=== PATIENT | male | born 1960 | race Caucasian/White ===

== ENCOUNTER 2017-02-23 21:46 | Emergency (ER) | payer OTHER ==
[~2017-02-23] VITALS: Wt 88.0 kg
[~2017-02-23 21:46] MED LIST: ASPI81TA3 PO; LOSA50TA2 PO; NIFE60TA60 PO
[2017-02-23] MEDS ORDERED: SOD CHLORIDE 0.9% 1,000 ML IV STA (23:37)
[2017-02-23] MEDS ORDERED: morphine 2 MG INJ IV STA (23:37)
[2017-02-23] MEDS ORDERED: ONDANSETRON 4 MG INJ IV STA (23:37)
[2017-02-24 00:03] LABS: ADD SCAN DIFF NO
[2017-02-24 00:06] LABS: BASOPHILS % 0.3 % (0.0-2.0); EOSINOPHILS # 0.2 10^3/ul (0.0-0.5); HEMATOCRIT 37.6 % (42.0-52.0); HEMOGLOBIN 12.6 g/dl (14.0-18.0); LYMPHOCYTES # 0.7 10^3/ul (0.8-2.9); MEAN CORPUSCULAR HEMOGLOBIN 30.7 pg (29.0-33.0); MEAN CORPUSCULAR HGB CONC 33.5 g/dl (32.0-37.0); MEAN CORPUSCULAR VOLUME 91.5 fl (82.0-101.0); MEAN PLATELET VOLUME 8.9 fl (7.4-10.4); MONOCYTE # 1.1 10^3/ul (0.3-0.9); MONOCYTES % 14.3 % (0.0-11.0); NEUTROPHIL # 5.6 10^3/ul (1.6-7.5); NEUTROPHILS % 73.1 % (39.0-77.0); PLATELET COUNT 202 10^3/UL (140-415); RED BLOOD COUNT 4.11 10^6/ul (4.70-6.10); RED CELL DISTRIBUTION WIDTH 12.9 % (11.5-14.5); WHITE BLOOD COUNT 7.7 10^3/ul (4.8-10.8)
[2017-02-24 00:42] LABS: ALBUMIN/GLOBULIN RATIO 1.42; BILIRUBIN,INDIRECT 0.3 mg/dl (0-1.1); BILIRUBIN,TOTAL 0.3 mg/dl (0.2-1.3); CALCIUM 9.4 mg/dl (8.4-10.2); CREATININE 1.86 mg/dl (0.61-1.24); POTASSIUM 3.9 mmol/L (3.5-5.1); TOTAL PROTEIN 6.8 g/dl (6.1-8.1)
[2017-02-24 00:53] LABS: TROPONIN-I 0.022 ng/ml (0.00-0.12)
--- NOTE | 2017-02-24 01:42 | RADRPT ---
PROCEDURE: Portable chest x-ray. CLINICAL INDICATION: Abdominal pain. TECHNIQUE: Portable AP view of the chest. COMPARISON: 04/21/2016. FINDINGS: No pulmonary edema or conolidation is identified. The cardiac silhouette is magnified. No pleural effusion is seen. There is no pneumothorax. There is no pneumoperitoneum. IMPRESSION: 1. No evidence of acute cardiopulmonary disease. 2. No pneumoperitoneum. RPTAT: HTAR .Cody Enriquez MD, MD Date Time Electronically viewed and signed by .Cody Enriquez MD, on 02/24/2017 01:42 .R/
[2017-02-24 04:13] VITALS: BP 120/75; PULSE 80; RESP 20; TEMP 98.2
[2017-02-24 04:25] LABS: ADD UMIC NO; URINE BILIRUBIN (Dip) NEGATIVE (NEGATIVE); URINE BLOOD (Dip) NEGATIVE (NEGATIVE); URINE COLOR LT. YELLOW (YELLOW); URINE GLUCOSE (Dip) NEGATIVE (NEGATIVE); URINE KETONES (Dip) NEGATIVE (NEGATIVE); URINE LEUKOCYTE ESTERASE (Dip) NEGATIVE (NEGATIVE); URINE NITRITE (Dip) NEGATIVE (NEGATIVE); URINE TOTAL PROTEIN (Dip) NEGATIVE (NEGATIVE); URINE UROBILINOGEN (Dip) 0.2 E.U./dL (0.1-1.0)
--- NOTE | 2017-02-24 04:50 | RADRPT ---
PROCEDURE: XR tibia / fibula. CLINICAL INDICATION: Trauma. TECHNIQUE: AP and lateral views of the left tibia/fibula were performed. COMPARISON: There are no similar studies submitted for comparison. FINDINGS: There is normal bone mineralization.There is no acute fracture or dislocation.No osseous lesion is i dentified. IMPRESSION: No acute fracture or subluxation. RPTAT: HIKT .Aurelio Patterson MD, MD Date Time Electronically viewed and signed by .Aurelio Patterson MD, on 02/24/2017 04:50 .T/
[2017-02-24] MEDS ORDERED: ACET-141 PO (06:24)
--- NOTE | 2017-02-24 06:29 | ERD ---
ER Documentation Chief Complaint Date/Time DATE: 02/24/17 TIME: 06:25 Chief Complaint AP, SOB and unable to urinate per verbatum. Hx of staph infection HPI This 56-year-old male supposedly complained of shortness of breath and abdominal pain in triage. States to me that he does not have any other symptoms currently but he had them earlier in the week. States that he just urinated before he came so might be some time before he can pee again. Also states that the main reason he is here is because of the leg pain that he has in his left melendrez. States that the doctor once told they had an infection in the bone in that melendrez. States that the pain is been going on and off for 2 weeks. Denies trauma to that area. ROS All systems reviewed and are negative except as per history of present illness. Medications Home Meds Active Scripts Acetaminophen* (Acetaminophen*) 500 MG Extra Strength Tablet, 500 MG PO Q6 Y for PAIN AND OR ELEVATED TEMP, #14 TAB Prov:NEYDA BARTLETT DO 02/24/17 Losartan Potassium* (Cozaar*) 50 Mg Tablet, 50 MG PO DAILY for 30 Days, TAB Prov:FARIDA ALBA [employer] 04/23/16 Nifedipine* (Procardia XL*) 60 Mg Tabsr, 60 MG PO BID for 30 Days, TAB Prov:FARIDA ALBA [employer] 01/15/16 Aspirin (Aspirin) 81 Mg Chew, 81 MG PO DAILY for 30 Days, TAB Prov:FARIDA ALBA [employer]ATOR 01/15/16 Allergies Allergies: Coded Allergies: No Known Allergy (Unverified , 01/12/16) PMhx/Soc History of Surgery: Yes Anesthesia Reaction: No Hx Neurological Disorder: No Hx Respiratory Disorders: No Hx Cardiac Disorders: Yes (HTN) Hx Psychiatric Problems: No Hx Miscellaneous Medical Probl: Yes (Carpal Tunnel) Hx Alcohol Use: Yes Hx Substance Use: No Hx Tobacco Use: Yes (1 ppd) Smoking Status: Current every day smoker Physical Exam Vitals Vital Signs Date Time Temp Pulse Resp B/P Pulse Ox O2 Delivery O2 Flow Rate FiO2 02/24/17 04:13 98.2 80 20 120/75 99 Room Air 02/23/17 22:30 98.2 97 20 121/70 98 Physical Exam Const: [] No distress, appears comfortable, eating during history taking Head: Atraumatic Eyes: Normal Conjunctiva ENT: Normal External Ears, Nose and Mouth. Neck: Full range of motion..~ No meningismus. Resp: Clear to auscultation bilaterally Cardio: Regular rate and rhythm, no murmurs Abd: Soft, non tender, non distended. Normal bowel sounds Skin: No petechiae or rashes Back: No midline or flank tenderness Ext: No cyanosis, or edema, distal pulses intact, states that he has pain along palpation along his melendrez but there is no deformity discoloration or abnormal appearance. Neur: Awake and alert and oriented 3, cranial nerves II through XII intact, no cerebellar deficits, normal gait Psych: Normal Mood and Affect Result Diagram: 02/23/17 2352 02/23/17 2352 Results 24 hrs Laboratory Tests Test 02/23/17 04:00 02/23/17 23:52 Urine Color LT. YELLOW Urine Clarity CLEAR Urine pH 6.0 Urine Specific [place] 1.020 Urine Ketones NEGATIVE Urine Nitrite NEGATIVE Urine Bilirubin NEGATIVE Urine Urobilinogen 0.2 E.U./dL Urine Leukocyte Esterase NEGATIVE Urine Hemoglobin NEGATIVE Urine Glucose NEGATIVE% Urine Total Protein NEGATIVE White Blood Count 7.710^3/ul Red Blood Count 4.1110^6/ul Hemoglobin 12.6g/dl Hematocrit 37.6% Mean Corpuscular Volume 91.5fl Mean Corpuscular Hemoglobin 30.7pg Mean Corpuscular Hemoglobin Concent 33.5g/dl Red Cell Distribution Width 12.9% Platelet Count 95363^3/UL Mean Platelet Volume 8.9fl Neutrophils % 73.1% Lymphocytes % 9.0% Monocytes % 14.3% Eosinophils % 3.0% Basophils % 0.3% Nucleated Red Blood Cells % 0.0/100WBC Neutrophils # 5.610^3/ul Lymphocytes # 0.710^3/ul Monocytes # 1.110^3/ul Eosinophils # 0.210^3/ul Basophils # 0.010^3/ul Nucleated Red Blood Cells # 0.010^3/ul Sodium Level 134mmol/L Potassium Level 3.9mmol/L Chloride Level 101mmol/L Carbon Dioxide Level 25mmol/L Anion Gap 12 Blood Urea Nitrogen 23mg/dl Creatinine 1.86mg/dl Glucose Level 167mg/dl Calcium Level 9.4mg/dl Total Bilirubin 0.3mg/dl Direct Bilirubin 0.00mg/dl Indirect Bilirubin 0.3mg/dl Aspartate Amino Transf (AST/SGOT) 19IU/L Alanine Aminotransferase (ALT/SGPT) 28IU/L Alkaline Phosphatase 57IU/L Troponin I 0.022ng/ml Total Protein 6.8g/dl Albumin 4.0g/dl Globulin 2.80g/dl Albumin/Globulin Ratio 1.42 Lipase 47U/L Current Medications Medications (Trade) Dose Ordered Sig/Sarah Route PRN Reason Start Time Stop Time Status Last Admin Dose Admin Sodium Chloride (NS) 1,000 ml @ 1,000 mls/hr Q1H STAT IV 02/23/17 23:37 02/24/17 00:36 DC 02/24/17 00:00 Morphine Sulfate (morphine) 2 mg ONCE STAT IV 02/23/17 23:37 02/23/17 23:38 DC 02/24/17 00:00 Ondansetron HCl (Zofran Inj) 4 mg ONCE STAT IV 02/23/17 23:37 02/23/17 23:38 DC 02/24/17 00:00 Procedures/MDM Patient with inconsistent stories of abdominal pain, shortness of breath and mostly leg pain. This patient stated he did have significant shortness of breath previously as well as abdominal pain went away but was very bad workup was performed which showed no acute pathology. The only thing found was renal insufficiency. Patient's creatinine had been high previously but not as high. He states that he is following up with his doctor has an appointment next week and knows that he has any problems. He was given a liter of normal saline hydration in the emergency room. Also eat multiple sandwiches at his request. This point I see no acute process. I doubt acute coronary syndrome as well as any emergent cause of abdominal pain or shortness of breath. Patient has no sign of osteomyelitis of his bone and no signs of infection in his skin. Discharging with primary care follow-up in the next 2-3 days . Chest x-ray interpretation: No acute process, no infiltrates, no pulmonary edema , no fractures, no pneumothorax Tibia-fibula x-ray interpretation: I see no bony abnormalities, no bone erosion , no fractures or dislocations. Departure Diagnosis: Primary Impression: Renal insufficiency Additional Impressions: Leg pain Hyponatremia Condition: Stable Patient Instructions: Renal Insufficiency Additional Instructions: Call your primary care doctor TOMORROW for an appointment during the next 2-3 days.See the doctor sooner or return here if your condition worsens before your appointment time. NEYDA BARTLETT DO February 24, 2017 06:29
== END 2017-02-24 06:54 | disposition home or self-care (01) ==
LOC: E/R 21:46
DX: N28.9 Disorder of kidney and ureter, unspecified (principal); M79.662 Pain in left lower leg; F17.210 Nicotine dependence, cigarettes, uncomplicated; I10 Essential (primary) hypertension; Z79.82 Long term (current) use of aspirin
CPT/HCPCS: 36415; 71010; 73590; 80053; 83690; 84484; 85025; 93005; 96374; 96375; J2270; J2405; J7030; Z7502; 81003

== ENCOUNTER 2017-06-22 22:21 | Inpatient (IN) | payer OTHER ==
[~2017-06-22] VITALS: Ht 182.9 cm; Wt 86.0 kg
[~2017-06-22 22:21] MED LIST changes: +ACET-141 PO
[2017-06-23] VITALS (11 sets, daily range): BP systolic 139–184; BP diastolic 83–105; PULSE 60–65; RESP 17–20; TEMP 98.7; Ht 182.9 cm; Wt 86.0 kg
--- NOTE | 2017-06-23 00:22 | ERA ---
ER Documentation Chief Complaint Date/Time DATE: 06/23/17 TIME: 00:21 Chief Complaint c/o coughing up blood x 1 day. (+) SB with excertion. (+) smoke. HPI The patient is a 57-year-old male, presenting with acute hemoptysis, persistent cough, with shortness of breath. He denies similar symptoms previously. He is homeless, denies weight loss, night sweats. He denies abdominal pain, vomiting , dysuria, diarrhea. He smokes half a pack a day, history of illicit drug Past medical history: Hypertension, CAD, dyslipidemia, history of CHF, chronic kidney disease Past surgical history bilateral carpal tunnel syndrome ROS All systems reviewed and are negative except as per history of present illness. Medications Home Meds Active Scripts Aspirin (Aspirin) 81 Mg Chew, 81 MG PO DAILY for 30 Days, TAB Prov:FARIDA ALBA BOOKY 01/15/16 Reported Medications Losartan Potassium* (Losartan Potassium*) 100 Mg Tablet, 100 MG PO DAILY, TAB 06/23/17 Amlodipine Besylate* (Amlodipine Besylate*) 10 Mg Tablet, 10 MG PO DAILY, #30 TAB 06/23/17 Hydrochlorothiazide* (Hydrochlorothiazide*) 25 Mg Tab, 25 MG PO DAILY, #30 TAB 06/23/17 Discontinued Scripts Acetaminophen* (Acetaminophen*) 500 MG Extra Strength Tablet, 500 MG PO Q6 Y for PAIN AND OR ELEVATED TEMP, #14 TAB Prov:NEYDA BARTLETT DO 02/24/17 Losartan Potassium* (Cozaar*) 50 Mg Tablet, 50 MG PO DAILY for 30 Days, TAB Prov:FARIDA ALBA NP 04/23/16 Nifedipine* (Procardia XL*) 60 Mg Tabsr, 60 MG PO BID for 30 Days, TAB Prov:FARIDA ALBA BOOKY 01/15/16 Allergies Allergies: Coded Allergies: No Known Allergy (Unverified , 06/23/17) PMhx/Soc History of Surgery: Yes Anesthesia Reaction: No Hx Neurological Disorder: No Hx Respiratory Disorders: No Hx Cardiac Disorders: Yes (HTN) Hx Psychiatric Problems: No Hx Miscellaneous Medical Probl: Yes (Carpal Tunnel) Hx Alcohol Use: Yes Hx Substance Use: No Hx Tobacco Use: Yes (1 ppd) Physical Exam Vitals Vital Signs Date Time Temp Pulse Resp B/P Pulse Ox O2 Delivery O2 Flow Rate FiO2 06/23/17 05:41 58 18 160/99 98 06/23/17 04:13 98.7 66 18 168/98 98 06/23/17 02:51 75 18 205/120 98 06/23/17 02:20 75 18 209/128 98 06/22/17 22:46 99.1 85 18 223/134 98 Physical Exam Const: No acute distress. Head: Atraumatic. Eyes: Normal Conjunctiva. ENT: Normal External Ears, Nose and Mouth. Neck: Full range of motion. No meningismus. Resp: Clear to auscultation bilaterally. Cardio: Regular rate and rhythm. Abd: Soft, non distended, normal bowel sounds, non tender. Skin: No petechiae or rashes. Back: No midline or flank tenderness. Ext: No cyanosis, or edema. Neur: Awake and alert. No focal deficit Psych: Normal Mood and Affect. Result Diagram: 06/23/17 0035 06/23/17 0035 Results 24 hrs Laboratory Tests Test 06/23/17 00:35 White Blood Count 7.710^3/ul Red Blood Count 3.9210^6/ul Hemoglobin 11.9g/dl Hematocrit 35.7% Mean Corpuscular Volume 91.1fl Mean Corpuscular Hemoglobin 30.4pg Mean Corpuscular Hemoglobin Concent 33.3g/dl Red Cell Distribution Width 12.8% Platelet Count 70365^3/UL Mean Platelet Volume 9.5fl Neutrophils % 67.0% Lymphocytes % 19.7% Monocytes % 10.5% Eosinophils % 2.1% Basophils % 0.4% Nucleated Red Blood Cells % 0.0/100WBC Neutrophils # 5.210^3/ul Lymphocytes # 1.510^3/ul Monocytes # 0.810^3/ul Eosinophils # 0.210^3/ul Basophils # 0.010^3/ul Nucleated Red Blood Cells # 0.010^3/ul Prothrombin Time 13.9Sec Prothrombin Time Ratio 1.1 INR International Normalized Ratio 1.07 Activated Partial Thromboplast Time 35.9Sec Sodium Level 141mmol/L Potassium Level 3.0mmol/L Chloride Level 107mmol/L Carbon Dioxide Level 27mmol/L Anion Gap 10 Blood Urea Nitrogen 21mg/dl Creatinine 1.45mg/dl Glucose Level 166mg/dl Lactic Acid Level 1.4mmol/L Calcium Level 9.1mg/dl Total Bilirubin 0.2mg/dl Direct Bilirubin 0.00mg/dl Indirect Bilirubin 0.2mg/dl Aspartate Amino Transf (AST/SGOT) 24IU/L Alanine Aminotransferase (ALT/SGPT) 23IU/L Alkaline Phosphatase 66IU/L Troponin I 0.046ng/ml Total Protein 6.3g/dl Albumin 3.6g/dl Globulin 2.70g/dl Albumin/Globulin Ratio 1.33 Ethyl Alcohol Level < 10.0mg/dl Current Medications Medications (Trade) Dose Ordered Sig/Sarah Route PRN Reason Start Time Stop Time Status Last Admin Dose Admin Potassium Chloride 250 ml @ 62.5 mls/hr ONCE ONCE IVPB 06/23/17 02:30 06/23/17 06:29 06/23/17 02:51 Levofloxacin/ Dextrose (Levaquin 750 Mg/ D5W 150 ml (Pmx)) 150 ml @ 100 mls/hr ONCE ONCE IVPB 06/23/17 03:30 06/23/17 04:59 DC 06/23/17 04:12 Labetalol HCl 20 mg 20 mg ONCE ONCE IV 06/23/17 03:30 06/23/17 03:31 DC 06/23/17 04:12 Vancomycin HCl 250 ml @ 125 mls/hr ONCE IVPB 06/23/17 05:00 06/23/17 06:59 Ceftriaxone Sodium (Rocephin) 50 ml @ 100 mls/hr ONCE ONCE IVPB 06/23/17 05:00 06/23/17 05:29 DC Procedures/[place] [id number] Radiology Main Line: [phone] DIAGNOSTIC IMAGING REPORT Patient: SAGRARIO ELAINE : 1960 Age: 57 Sex: M MR #: [id number] DOS: 06/23/17 0029 Ordering MD: BRENNA CRUZ MD Location: E/R Room/Bed: PROCEDURE: XR Chest. CLINICAL INDICATION: Possible sepsis. TECHNIQUE: 2 frontal views of the chest. COMPARISON: Chest dated 04/21/2016. FINDINGS: Heart size is at upper limits of normal. The lungs are clear. No signs of pleural fluid or pneumothorax are seen. The osseous structures and soft tissues are unremarkable. IMPRESSION: No evidence for active cardiopulmonary disease. RPTAT: UU Physician Karla Date Time Electronically viewed and signed by Arthur sEcobar Physician on 06/23/2017 01:29 RS/ CC: BRENNA CRUZ MD [place] [id number] Radiology Main Line: [phone] DIAGNOSTIC IMAGING REPORT Patient: SAGRARIO ELAINE : 1960 Age: 57 Sex: M MR #: [id number] DOS: 06/23/17 0031 Ordering MD: BRENNA CRUZ MD Location: E/R Room/Bed: PROCEDURE: CT Chest without contrast. CLINICAL INDICATION: Hemoptysis TECHNIQUE: CT scan of the chest without contrast was performed on a multidetector high-resolution CT scanner. Coronal and sagittal reformatted images were obtained from the axial source images. The total exam CTDI equals 12.6 mGy and the total exam DLP equals 516.05 mGy-cm. One or more the following dose reduction techniques were utilized: Automated exposure control, adjustment of the mA and / or kV according to patient's size, or use of iterative reconstruction technique. COMPARISON: Chest x-ray of 06/23/2017 FINDINGS: No enlarged mediastinal lymph nodes or pleural effusion is seen. Coronary artery calcification. No adrenal mass is seen. The most inferior aspect of the left adrenal is not included in the imaging volume. Calcification in splenic artery. Mild dependent atelectasis in posterior lungs. Mild right apical lung fibrotic changes. Likely small calcified granuloma at the right lung apex. Scattered linear atelectasis/fibrosis is seen in the lungs. There is appearance of patchy partial atelectasis/infiltrate at the base of the right lower lung lobe posteriorly and inferiorly. Mild degenerative changes in thoracic spine. IMPRESSION: Patchy partial atelectasis/infiltrate at base of right lower lung lobe. Coronary artery calcification. Please see above. RPTAT: HJES .Andrew Atwood MD, MD Date Time Electronically viewed and signed by .Andrew Atwood MD, MD on 06/23/2017 04:51 .S/ CC: BRENNA CRUZ MD EKG: Read by emergency physician Rate/Rhythm: Normal Sinus Rhythm 75 beats/min QRS, ST, T-waves: No ST elevation, no T inversion. LVH, prolong QT Impression: Abnormal EKG MEDICAL MAKING DECISION: The patient is a 57-year-old male, presenting with acute hemoptysis, acute pneumonia, acute hypokalemia, acute accelerated hypertension. He is significant wrist was treated with Levaquin IV, Rocephin IV , vancomycin IV for acute pneumonia also suspected with hemoptysis, potassium chloride 40 mEq IV for acute hypokalemia, acute labetalol 20 mg IV and hydralazine 10 mg IV for acute excellent hypertension with good response. The differential diagnoses considered include but are not limited to TB, malignancy, asthma, COPD, pneumonia, pulmonary embolus, pleural effusion, congestive heart failure. Critical Care: Time: 35 minutes excluding all billable procedures. Treatments/Evaluations: Close monitoring and treatment of unstable vital signs, cardiorespiratory, and neurologic status, while maintaining tight balance of fluid, respiratory, and cardiac interventions. Departure Diagnosis: Primary Impression: Hemoptysis Additional Impressions: Pneumonia Accelerated hypertension Hypokalemia Anemia Condition: Stable Comments I discussed the findings with the patient. I discussed the patient with the on- call hospitalist Dr. Davies who was made aware of the lab, the treatment, the patient condition. The patient is admitted to telemetry Urinalysis and urine drug screen are pending BRENNA CRUZ MD Jun 23, 2017 00:22
[2017-06-23 01:17] LABS: BASOPHILS % 0.4 % (0.0-2.0); EOSINOPHILS # 0.2 10^3/ul (0.0-0.5); EOSINOPHILS % 2.1 % (0.0-7.0); HEMATOCRIT 35.7 % (42.0-52.0); HEMOGLOBIN 11.9 g/dl (14.0-18.0); LYMPHOCYTES # 1.5 10^3/ul (0.8-2.9); LYMPHOCYTES % 19.7 % (15.0-51.0); MEAN CORPUSCULAR HEMOGLOBIN 30.4 pg (29.0-33.0); MEAN CORPUSCULAR HGB CONC 33.3 g/dl (32.0-37.0); MEAN CORPUSCULAR VOLUME 91.1 fl (82.0-101.0); MEAN PLATELET VOLUME 9.5 fl (7.4-10.4); MONOCYTE # 0.8 10^3/ul (0.3-0.9); MONOCYTES % 10.5 % (0.0-11.0); NEUTROPHIL # 5.2 10^3/ul (1.6-7.5); PLATELET COUNT 169 10^3/UL (140-415); RED BLOOD COUNT 3.92 10^6/ul (4.70-6.10); RED CELL DISTRIBUTION WIDTH 12.8 % (11.5-14.5); WHITE BLOOD COUNT 7.7 10^3/ul (4.8-10.8)
--- NOTE | 2017-06-23 01:30 | RADRPT ---
PROCEDURE: XR Chest. CLINICAL INDICATION: Possible sepsis. TECHNIQUE: 2 frontal views of the chest. COMPARISON: Chest dated 04/21/2016. FINDINGS: Heart size is at upper limits of normal. The lungs are clear. No signs of pleural fluid or pneumotho rax are seen. The osseous structures and soft tissues are unremarkable. IMPRESSION: No evidence for active cardiopulmonary disease. RPTAT: UU Physician Karla Date Time Electronically viewed and signed by Arthur Escobar Physician on 06/23/2017 01:29 RS/
[2017-06-23 01:32] LABS: INR 1.07; PROTIME 13.9 Sec (12.2-14.2); PT RATIO 1.1
[2017-06-23 01:33] LABS: PARTIAL THROMBOPLASTIN TIME 35.9 Sec (25.0-35.0)
[2017-06-23 02:01] LABS: ALANINE AMINOTRANSFERASE 23 IU/L (13-69); ALBUMIN 3.6 g/dl (3.3-4.9); ALBUMIN/GLOBULIN RATIO 1.33; ALKALINE PHOSPHATASE 66 IU/L (42-121); ANION GAP 10 (8-16); ASPARTATE AMINO TRANSFERASE 24 IU/L (15-46); BILIRUBIN,INDIRECT 0.2 mg/dl (0-1.1); BILIRUBIN,TOTAL 0.2 mg/dl (0.2-1.3); BLOOD UREA NITROGEN 21 mg/dl (7-20); CALCIUM 9.1 mg/dl (8.4-10.2); CARBON DIOXIDE 27 mmol/L (21-31); CHLORIDE 107 mmol/L (97-110); CREATININE 1.45 mg/dl (0.61-1.24); GLUCOSE 166 mg/dl (70-220); SODIUM 141 mmol/L (135-144); TOTAL PROTEIN 6.3 g/dl (6.1-8.1)
[2017-06-23] MEDS ORDERED: HYDR25TA6 PO (02:12)
[2017-06-23 02:13] LABS: TROPONIN-I 0.046 ng/ml (0.00-0.12)
[2017-06-23] MEDS ORDERED: AMLO-147 PO (02:13)
[2017-06-23] MEDS ORDERED: LOSA100T7 PO (02:16)
[2017-06-23] MEDS ORDERED: POTASSIUM CHLORIDE 250 ML IVPB ONE (02:30)
[2017-06-23 02:34] LABS: ETHANOL < 10.0 mg/dl
[2017-06-23] MEDS ORDERED: LABETALOL HCL 20MG INJ IV ONE (03:30)
[2017-06-23] MEDS ORDERED: LEVOFLOXACIN 750MG/D5W (PMX) 150 ML IVPB ONE (03:30)
--- NOTE | 2017-06-23 04:52 | RADRPT ---
PROCEDURE: CT Chest without contrast. CLINICAL INDICATION: Hemoptysis TECHNIQUE: CT scan of the chest without contrast was performed on a multidetector high-resolution CT scanner. Coronal and sagittal reformatted images were obtained from the axial source images. The total exam CTDI equals 12.6 mGy and the total exam DLP equals 516.05 mGy-cm. One or more the following dose reduction techniques were utilized: Automated exposure control, adjus tment of the mA and / or kV according to patient's size, or use of iterative reconstruction techniqu e. COMPARISON: Chest x-ray of 06/23/2017 FINDINGS: No enlarged mediastinal lymph nodes or pleural effusion is seen. Coronary artery calcification. No a drenal mass is seen. The most inferior aspect of the left adrenal is not included in the imaging vol ume. Calcification in splenic artery. Mild dependent atelectasis in posterior lungs. Mild right apic al lung fibrotic changes. Likely small calcified granuloma at the right lung apex. Scattered linear atelectasis/fibrosis is seen in the lungs. There is appearance of patchy partial atelectasis/infiltr ate at the base of the right lower lung lobe posteriorly and inferiorly. Mild degenerative changes i n thoracic spine. IMPRESSION: Patchy partial atelectasis/infiltrate at base of right lower lung lobe. Coronary artery calcificatio n. Please see above. RPTAT: HJES .Andrew Atwood MD, MD Date Time Electronically viewed and signed by .Andrew Atwood MD, on 06/23/2017 04:51 .S/
[2017-06-23] MEDS ORDERED: VANCOMYCIN 1 GM (PMX) 250 ML IVPB SCH (05:00)
[2017-06-23] MEDS ORDERED: CEFTRIAXONE 1 GM/50 ML (PMX) 50 ML IVPB ONE (05:00)
[2017-06-23] MEDS ORDERED: ONDANSETRON 4 MG INJ IV PRN (07:30)
[2017-06-23] MEDS ORDERED: morphine 2 MG INJ IV PRN (07:30)
[2017-06-23] MEDS ORDERED: LORAZEPAM 0.5 MG TAB PO PRN (07:30)
[2017-06-23] MEDS ORDERED: NACL 0.9% 3 ML SYG IV SCH (07:30)
[2017-06-23] MEDS ORDERED: ALBUTEROL/IPRATROPIUM (NEB) 3 ML AMP HHN PRN (07:30)
[2017-06-23] MEDS ORDERED: ACETAMINOPHEN 325 MG TAB PO PRN (07:30)
[2017-06-23 08:08] LABS: BASOPHILS % 0.4 % (0.0-2.0); EOSINOPHILS # 0.2 10^3/ul (0.0-0.5); EOSINOPHILS % 2.5 % (0.0-7.0); HEMATOCRIT 34.7 % (42.0-52.0); HEMOGLOBIN 11.1 g/dl (14.0-18.0); LYMPHOCYTES # 1.5 10^3/ul (0.8-2.9); LYMPHOCYTES % 22.3 % (15.0-51.0); MEAN CORPUSCULAR HEMOGLOBIN 29.4 pg (29.0-33.0); MEAN CORPUSCULAR VOLUME 91.8 fl (82.0-101.0); MEAN PLATELET VOLUME 9.6 fl (7.4-10.4); MONOCYTE # 0.7 10^3/ul (0.3-0.9); NEUTROPHIL # 4.3 10^3/ul (1.6-7.5); NEUTROPHILS % 63.7 % (39.0-77.0); PLATELET COUNT 159 10^3/UL (140-415); RED BLOOD COUNT 3.78 10^6/ul (4.70-6.10); WHITE BLOOD COUNT 6.7 10^3/ul (4.8-10.8)
[2017-06-23 08:33] LABS: ALBUMIN 3.4 g/dl (3.3-4.9); ALBUMIN/GLOBULIN RATIO 1.36; BILIRUBIN,INDIRECT 0.1 mg/dl (0-1.1); BILIRUBIN,TOTAL 0.1 mg/dl (0.2-1.3); CALCIUM 8.9 mg/dl (8.4-10.2); CREATININE 1.34 mg/dl (0.61-1.24); POTASSIUM 3.7 mmol/L (3.5-5.1); TOTAL PROTEIN 5.9 g/dl (6.1-8.1)
[2017-06-23] MEDS ORDERED: HEPARIN 5,000 UNIT/0.5 ML VIAL SC SCH (09:00)
[2017-06-23] MEDS ORDERED: LOSARTAN 50 MG TAB PO SCH (09:00)
[2017-06-23] MEDS ORDERED: AMLODIPINE 10 MG TAB PO SCH (09:00)
[2017-06-23] MEDS: ASPIRIN 81 MG TAB PO SCH (09:04)
[2017-06-23] MEDS: SOD CHLORIDE 0.9% 1,000 ML IV SCH ×2 (09:04→10:53)
--- NOTE | 2017-06-23 10:43 | HP ---
Date/Time of Note Date/Time of Note DATE: 06/23/17 TIME: 10:32 Assessment/Plan VTE Prophylaxis VTE Prophylaxis Intervention: heparin Lines/Catheters IV Catheter Type (from [facility]): Peripheral IV Assessment/Plan Assessment/Plan 57-year-old male who came to the emergency room for evaluation of progressive malaise, night sweats now with new onset of coughing up blood. 1.Hemoptysis-Bronchitis? Rule out other pulmonary etiologies. HH stable -Obtain sputum culture, AFB smear and culture. -Obtain D-dimer and VQ scan to rule out PE. Patient is not a candidate for contrast study secondary to renal function. -If pulmonary sources are ruled out, will consider GI- Patient doesn't have any N/V or abdominal discomfort. 2. Possible community-acquired Pneumonia -Patient will be started on Levaquin. Follow-up cultures. 3. Hypertension, accelerated. Now stable. -Continue home antihypertensives. 4. Hypokalemia. Status post repletion. -We will monitor level. Monitor mag level. 5. Acute kidney injury on chronic kidney disease. Baseline creatinine unknown. -Obtain nephrology consult. Monitor renal function closely and nephrotoxins as much as possible. 6. Anemia, likely anemia of chronic kidney disease. H&H stable. Will monitor. 7. Right hand carpal tunnel syndrome. Pain control as needed. 8. Current nicotine abuse. Cessation advised 9. Possible homelessness. -draw off worker evaluation. 10. Noncompliance. -Patient was counseled. Plan: Patient will be monitored in the telemetry. Patient will have ID and pulmonary evaluation as his presenting complaints are concerning and needs tuberculosis rule out. He will be treated empirically for pneumonia. Electrolyte levels will be monitored closely and replete as needed. We will also consult patient on compliance and will have social work specialist evaluation. Will also obtain a.m. labs including fasting lipid panel, A1c and TSH level. Plan of care updated with patient and in agreement with the current plan. Approximately 60 minutes was spent on this history and physical. Patient was seen in collaboration with . HPI/AKHIL Admit Date/Time Admit Date/Time Jun 23, 2017 at 04:59 Hx of Present Illness This is a 57-year-old male with a past medical history of noncompliance, hypertension, chronic kidney disease, diastolic heart failure, right hand carpal tunnel syndrome, nicotine abuse, former meth abuse, who presented to the emergency room with complaints of coughing up blood that started yesterday. Apparently, he was having progressive nocturnal dyspnea, malaise and night sweats. Patient denied chest pain, palpitation, loss of consciousness, dizziness, nausea, vomiting, abdominal pain, fever or chills. He denied any recent travel or sick contacts. Initial blood pressure 223/134, temperature 99.1. CBC with hemoglobin 11.9, hematocrit 35.7. BMP with potassium 3.0, blood sugar 166, BUN [address] creatinine [address]. A [address] chest without contrast revealed patchy partial atelectasis versus infiltrate at base of right lower lung lob. Twelve-lead EKG without any ST or T-wave changes. Patient was given Levaquin, labetalol, vancomycin and potassium chloride in the emergency room. Patient was admitted for further evaluation. ROS A 12 point review of system was assessed and is negative other than what is mentioned in HPI. PMH/Family/Social Past Medical History See HPI Past Surgical History History of surgery for carpal tunnel syndrome. Past Surgical Hx: other Social History Current every day smoker. Former meth abuse. Occasional/social alcohol use. Smoking Status: Current every day smoker Exam/Review of Systems Vital Signs Vitals Vital Signs Date Time Temp Pulse Resp B/P Pulse Ox O2 Delivery O2 Flow Rate FiO2 06/23/17 08:00 65 06/23/17 07:39 97.8 18 174/91 98 06/23/17 07:38 Room Air Exam Exam General: Well developed,adequately built, not in any acute distress . HEENT: Normocephalic, Atraumatic, No laceration or hematoma; Eyes: PEERL, Conjunctiva clear, Anicteric sclera Neck: Supple without any lymphadenopathy, nontender, no JVD, no carotid bruits, trachea midline, no thyromegaly Cardiac: S1, S2 auscultated, regular rhythm and rate, no mumurs or gallop Pulmonary: Diminished breath sound bibasilar. Normal respiratory effort. Chest clear to auscultation bilaterally, no adventitious breath sounds GI: Abdomen normal to inspection. Soft, non tender, non- distended, no masses, no rebound tenderness or guarding. Bowel sounds active on all four quadrants Genitourinary: Deferred Extremities: Pain with movement on right arm secondary to carpal tunnel. No cyanosis, clubbing, or edema. Pulses [2+] bilaterally. Full ROM on all four extremities. No focal weakness appreciated. Neurologic: Alert to person, place, time, and situation. Affect appropriate, intact sensation. Skin: Slightly diaphoretic. Clean,dry, and intact. No ecchymosis, no rashes, or lesions Labs Result Diagram: 06/23/1737 06/23/17736 Medications Medications Current Medications Sodium Chloride (NS) 1,000 ml @ 100 mls/hr Q10H IV Last administered on 09:04; Admin Dose 100 MLS/HR; Start 06/23/17 at 07:03; Stop 06/23/17 at 23: 00 Lorazepam (Ativan) 0.5 mg Q8H PRN PO ANXIETY; Start 06/23/17 at 07:30 Ondansetron HCl (Zofran Inj) 4 mg Q6H PRN IV NAUSEA AND/OR VOMITING; Start at 07:30 Acetaminophen (Tylenol Tab) 650 mg Q6H PRN PO PAIN LEVEL 1-3 OR FEVER; Start at 07:30 Morphine Sulfate (morphine) 2 mg Q4H PRN IV PAIN LEVEL 7-10; Start 06/23/17 at 07:30 Heparin Sodium (Porcine) (Heparin (5000 Units/0.5 ml)) 5,000 unit Q12 SC ; Start 06/23/17 at 09:00 Amlodipine Besylate (Norvasc) 10 mg DAILY PO Last administered on 06/23/17 09: 04; Admin Dose 10 MG; Start 06/23/17 at 09:00 Aspirin (Aspirin) 81 mg DAILY PO Last administered on 06/23/17 09:04; Admin Dose 81 MG; Start 06/23/17 at 09:00 Losartan Potassium (Cozaar) 100 mg DAILY PO Last administered on 06/23/17 09: 04; Admin Dose 100 MG; Start 06/23/17 at 09:00 Hydralazine HCl 10 mg 10 mg Q4H PRN IV SBP > 160; Start 06/23/17 at 07:30 Levofloxacin/ Dextrose (Levaquin 500mg/ D5W 100 ml (Pmx)) 100 ml @ 100 mls/hr Q24H IVPB ; Start 06/24/17 at 04:00 MARVIN BARAHONA NP Jun 23, 2017 10:43
--- NOTE | 2017-06-23 11:34 | CONS ---
Date/Time of Note Date/Time of Note DATE: 06/23/17 TIME: 11:29 Assessment/Plan Assessment/Plan Additional Assessment/Plan Chest x-ray was reviewed which is essentially unremarkable. Next CT scan chest without contrast is showing emphysematous changes with very scant right lower lobe infiltrate/atelectasis. Assessment and recommendations; 1. Patient admitted with hemoptysis etiology is unclear. CT chest is essentially unremarkable. 2. Epigastric discomfort. Possibly superimposed gastritis/peptic ulcer disease. Discontinue sub-cutaneous heparin. Patient is awaiting VQ scan of chest. Once the VQ scan is done we will review it and make further recommendations. Consultation Date/Type/Reason Admit Date/Time Jun 23, 2017 at 04:59 Date of Consultation: Jun 23, 2017 Type of Consultation: Pulmonary Reason for Consultation Emergent consultation requested for evaluation of hemoptysis. History of presenting any; patient is a 57-year-old white male who came into the emergency room yesterday with complaints of not feeling well. Patient also is having cough for the last few days with coughing up of blood-tinged sputum. Patient denies any shortness of breath, wheezing. Has lost little weight. Denies any fever chills. According to him he never had hemoptysis before. Complaint of upper abdominal discomfort. But denies any nausea vomiting. Past medical history; 1. Patient with history of chronic renal insufficiency. 2. Hypertension. 3. COPD. Patient; reviewed. Allergies; none. Social history; patient smokes about a pack a day. Family history; patient is single. Occupational history; patient is homeless. Review of systems; denies any headache, visual changes. Sinus symptoms. Chest pain. Shortness of breath at any wheezing. Complains of cough with coughing up of blood-tinged sputum. Complains of upper abdominal discomfort. But denies any nausea vomiting. Denies any melena or hematochezia. Denies any edema. And orthopnea. Any edema on exertion. Denies any skin changes. General exam; middle-aged male, awake and alert. Currently no distress. Past Surgical History Past Surgical Hx: other Social History Smoking Status: Current every day smoker Exam/Review of Systems Vital Signs Vitals Vital Signs Date Time Temp Pulse Resp B/P Pulse Ox O2 Delivery O2 Flow Rate FiO2 06/23/17 08:00 65 06/23/17 07:39 97.8 18 174/91 98 06/23/17 07:38 Room Air Exam HEENT exam; supple neck, no JVD. No lymphadenopathy. Midline trachea. No thyromegaly. Pupils are midsize and reactive to light. Patient has fair dentition. Chest exam; clear to auscultation. S1-S2 audible, no murmurs. Regular rhythm. Abdomen exam; soft, there is epigastric tenderness. Bowel sounds audible. No organomegaly. Abdomen is nondistended. Extremity exam; no peripheral edema. No clubbing , pulses 1+ bilaterally. TELEVISION ANALYZER exam; no focal motor deficit. Results Result Diagram: 06/23/17 0737 06/23/17 0737 Results 24 hrs Laboratory Tests Test 06/23/17 00:35 06/23/17 05:29 06/23/17 07:37 White Blood Count 7.7 6.7 Red Blood Count 3.92 L 3.78 L Hemoglobin 11.9 L 11.1 L Hematocrit 35.7 L 34.7 L Mean Corpuscular Volume 91.1 91.8 Mean Corpuscular Hemoglobin 30.4 29.4 Mean Corpuscular Hemoglobin Concent 33.3 32.0 Red Cell Distribution Width 12.8 13.0 Platelet Count 169 159 Mean Platelet Volume 9.5 9.6 Neutrophils % 67.0 63.7 Lymphocytes % 19.7 22.3 Monocytes % 10.5 11.0 Eosinophils % 2.1 2.5 Basophils % 0.4 0.4 Nucleated Red Blood Cells % 0.0 0.0 Neutrophils # 5.2 4.3 Lymphocytes # 1.5 1.5 Monocytes # 0.8 0.7 Eosinophils # 0.2 0.2 Basophils # 0.0 0.0 Nucleated Red Blood Cells # 0.0 0.0 Prothrombin Time 13.9 Prothrombin Time Ratio 1.1 INR International Normalized Ratio 1.07 Activated Partial Thromboplast Time 35.9 H Sodium Level 141 142 Potassium Level 3.0 L 3.7 Chloride Level 107 109 Carbon Dioxide Level 27 25 Anion Gap 10 12 Blood Urea Nitrogen 21 H 19 Creatinine 1.45 H 1.34 H Glucose Level 166 81 # Lactic Acid Level 1.4 1.0 1.0 Calcium Level 9.1 8.9 Total Bilirubin 0.2 0.1 L Direct Bilirubin 0.00 0.00 Indirect Bilirubin 0.2 0.1 Aspartate Amino Transf (AST/SGOT) 24 18 Alanine Aminotransferase (ALT/SGPT) 23 27 Alkaline Phosphatase 66 58 Troponin I 0.046 Total Protein 6.3 5.9 L Albumin 3.6 3.4 Globulin 2.70 2.50 Albumin/Globulin Ratio 1.33 1.36 Ethyl Alcohol Level < 10.0 Medications Medications Current Medications Sodium Chloride (NS) 1,000 ml @ 100 mls/hr Q10H IV Last administered on 09:04; Admin Dose 100 MLS/HR; Start 06/23/17 at 07:03; Stop 06/23/17 at 23: 00 Lorazepam (Ativan) 0.5 mg Q8H PRN PO ANXIETY; Start 06/23/17 at 07:30 Ondansetron HCl (Zofran Inj) 4 mg Q6H PRN IV NAUSEA AND/OR VOMITING; Start at 07:30 Acetaminophen (Tylenol Tab) 650 mg Q6H PRN PO PAIN LEVEL 1-3 OR FEVER; Start at 07:30 Morphine Sulfate (morphine) 2 mg Q4H PRN IV PAIN LEVEL 7-10; Start 06/23/17 at 07:30 Heparin Sodium (Porcine) (Heparin (5000 Units/0.5 ml)) 5,000 unit Q12 SC ; Start 06/23/17 at 09:00 Amlodipine Besylate (Norvasc) 10 mg DAILY PO Last administered on 06/23/17 09: 04; Admin Dose 10 MG; Start 06/23/17 at 09:00 Aspirin (Aspirin) 81 mg DAILY PO Last administered on 06/23/17 09:04; Admin Dose 81 MG; Start 06/23/17 at 09:00 Losartan Potassium (Cozaar) 100 mg DAILY PO Last administered on 06/23/17 09: 04; Admin Dose 100 MG; Start 06/23/17 at 09:00 Hydralazine HCl 10 mg 10 mg Q4H PRN IV SBP > 160; Start 06/23/17 at 07:30 Levofloxacin/ Dextrose (Levaquin 500mg/ D5W 100 ml (Pmx)) 100 ml @ 100 mls/hr Q24H IVPB ; Start 06/24/17 at 04:00 CALDERON ORDAZ Jun 23, 2017 11:34
[2017-06-23] MEDS: NIFEdipine (XL) 30 MG TAB PO SCH ×2 (14:15→20:14)
[2017-06-23 16:19] LABS: ADD UMIC NO; UR ASCORBIC ACID NEGATIVE (NEGATIVE); UR BILIRUBIN (Dip) NEGATIVE (NEGATIVE); UR BLOOD (Dip) NEGATIVE (NEGATIVE); UR CLARITY CLEAR (CLEAR); UR COLOR STRAW (YELLOW); UR GLUCOSE (Dip) 1+ mg/dL (NEGATIVE); UR KETONES (Dip) NEGATIVE (NEGATIVE); UR LEUKOCYTE ESTERASE (Dip) NEGATIVE Leu/ul (NEGATIVE); UR NITRITE (Dip) NEGATIVE (NEGATIVE); UR SPECIFIC GRAVITY (Dip) 1.013 (1.003-1.030); UR TOTAL PROTEIN (Dip) NEGATIVE (NEGATIVE); UR UROBILINOGEN (Dip) NEGATIVE (NEGATIVE)
[2017-06-23 16:32] LABS: OPIATES Negative (NEGATIVE)
[2017-06-23 16:43] LABS: BARBITURATES Negative (NEGATIVE); BENZODIAZEPINES Negative (NEGATIVE); CANNABINOIDS Negative (NEGATIVE); COCAINE Negative (NEGATIVE)
--- NOTE | 2017-06-23 16:49 | RADRPT ---
PROCEDURE: Ventilation-perfusion lung scan CLINICAL INDICATION: 57 -year-old patient with shortness of breath, hemoptysis. TECHNIQUE: Following the inhalation of approximately 1.0 mCi of Tc-99m stannous DTPA aerosol, vent ilation images were obtained. The patient was then given an intravenous injection of approximately 4.0 mCi of Tc-99m MAA, and perfusion images were obtained. Of specific node, the patient was unable to perform anterior and posterior perfusion images. COMPARISON: No prior VQ scans. Correlation was made with chest x-ray dated June 23, 2017. FINDINGS: Ventilation images demonstrate nonhomogeneous distribution of activity in the lungs bilaterally. Perfusion images reveal matched nonhomogeneous distribution of activity in both lungs. The findings represent low probability for pulmonary embolus. IMPRESSION: Low probability for pulmonary embolus. RPTAT: HH .Shala Anderson MD, Date Time Electronically viewed and signed by .Shala Anderson MD, on 06/23/2017 16:48 .L/
[2017-06-23] MEDS: PANTOPRAZOLE (EC) 40 MG TAB PO SCH (17:09)
--- NOTE | 2017-06-23 18:37 | RADRPT ---
PROCEDURE: Renal US. CLINICAL INDICATION: Renal dysfunction. TECHNIQUE: Multiple sonographic images of the kidneys and urinary bladder were obtained. The imag es were reviewed on a PACS workstation. COMPARISON: No prior studies are available for comparison. FINDINGS: The right kidney measures 10.4 cm. The left kidney measures 10.9 cm. There is no renal mass. There is no hydronephrosis. There is no renal calculus. Renal parenchymal thickness is normal bilaterally. Both kidneys are hyperechoic consistent with medical renal disease. The perirenal regions are normal with no fluid collection or mass. The urinary bladder is unremarkable with no mass or calculus. Bladder volume is 178 ml and the patie nt was unable to void. IMPRESSION: 1. Bilateral hyperechoic kidneys consistent with medical renal disease. 2. No hydronephrosis. 3. The patient was unable to void. RPTAT: QQ .Robbie Montes MD, MD Date Time Electronically viewed and signed by .Robbie Montes MD, on 06/23/2017 18:36 .R/
--- NOTE | 2017-06-23 19:13 | CONS ---
DATE OF ADMISSION: 06/23/2017 DATE OF CONSULTATION: 06/23/2017 The patient was admitted at the request of Dr. Davies. Thank you very much for allowing me to evaluate this 57-year-old male, admitted with hemoptysis and renal insufficiency. HISTORICAL EVENTS: As you well know, it has been approximately 1 week ago he noted the onset of a cough and the latter has been associated with night sweats and, for the last several days, notable blood each time he would cough. He has had weight loss of approximately 20 pounds. He denied vomiting, nausea. Appetite has been reduced. He has had a several-month history of difficulty initiating his urinary stream. No hematuria, flank pain, or history of urinary tract infection or stones. PAST MEDICAL HISTORY: 1. Includes renal insufficiency. Events surrounding this are unclear. 2. History of hypertension. 3. History of right carpal tunnel syndrome having had surgery for the same. MEDICATION: Prior to admission included: 1. Hydrochlorothiazide 25 mg per day. 2. Amlodipine 10 mg per day. 3. Aspirin 81 mg per day. 4. Losartan 100 mg per day. SOCIAL HISTORY: He does smoke. PHYSICAL EXAMINATION: VITAL SIGNS: Blood pressure 176/105. Respirations were 18. He was afebrile. HEENT: Eyes: Extraocular muscles were full. NECK: Revealed jugular venous distention. LUNGS: Reduced breath sounds bilaterally, a few rhonchi in the left base. HEART: Rhythm regular. No 3rd sound. ABDOMEN: Nontender. Some distention involving the lower abdomen. Percussion note was slightly dull over the bladder. EXTREMITIES: No edema. Calves nontender. Pulses reduced in the lower extremities. NEUROLOGIC: No lateralizing motor weakness. AVAILABLE LABORATORY STUDIES: Creatinine was 1.45 on 06/23/2017 at 0035 hours. At 0737 hours, it was 1.34. Hypokalemia was corrected, and lytes were normal this morning at 0700. Albumin was 3.4, hematocrit 34.7. White count was normal. Platelet count unrevealing. Coagulation studies were normal. IMAGING STUDIES: Include CT of the chest that revealed patchy partial atelectasis versus infiltrate at the right lower lung with chest x-ray revealing no abnormalities. IMPRESSION: Importantly, the patient's baseline renal function was well-preserved in April 2016 when his creatinine was 1.18. His present level of creatinine, that is improved since admission, I think reflects volume contraction in the setting of being on an ANNAMARIE inhibitor. At this point, need to exclude any obstructive component, given his pathologic lower urinary tract symptoms. PLAN: At this time is to obtain a urinalysis, random urine for sodium, protein/creatinine ratio to exclude any significant proteinuria, renal ultrasound, and postvoid bladder ultrasound. Losartan was discontinued and Catapres ordered for control of his blood pressure. We will follow with you. Thanks so much. Dictated By: Tirso Tavera MD /mattie/sylvain /Document#: [id number]
[2017-06-23 19:57] LABS: PROTEIN/CREAT RATIO 0.4 RATIO
[2017-06-24] VITALS (11 sets, daily range): BP systolic 132–160; BP diastolic 77–89; PULSE 62–81; RESP 19–20
[2017-06-24] MEDS: LEVOFLOXACIN 500MG/D5W (PMX) 100 ML IVPB SCH (05:22)
[2017-06-24] MEDS: PANTOPRAZOLE (EC) 40 MG TAB PO SCH ×2 (05:22→17:34)
[2017-06-24 07:16] LABS: BASOPHILS % 0.3 % (0.0-2.0); EOSINOPHILS # 0.2 10^3/ul (0.0-0.5); EOSINOPHILS % 2.1 % (0.0-7.0); HEMATOCRIT 36.8 % (42.0-52.0); HEMOGLOBIN 11.6 g/dl (14.0-18.0); LYMPHOCYTES # 1.7 10^3/ul (0.8-2.9); LYMPHOCYTES % 19.6 % (15.0-51.0); MEAN CORPUSCULAR HEMOGLOBIN 29.3 pg (29.0-33.0); MEAN CORPUSCULAR HGB CONC 31.5 g/dl (32.0-37.0); MEAN CORPUSCULAR VOLUME 92.9 fl (82.0-101.0); MEAN PLATELET VOLUME 9.7 fl (7.4-10.4); MONOCYTE # 0.8 10^3/ul (0.3-0.9); MONOCYTES % 8.7 % (0.0-11.0); NEUTROPHIL # 5.9 10^3/ul (1.6-7.5); NEUTROPHILS % 69.1 % (39.0-77.0); PLATELET COUNT 187 10^3/UL (140-415); RED BLOOD COUNT 3.96 10^6/ul (4.70-6.10); WHITE BLOOD COUNT 8.6 10^3/ul (4.8-10.8)
[2017-06-24 07:34] LABS: D-DIMER 320.75 ng/ml (<460)
[2017-06-24 08:08] LABS: CALCIUM 8.8 mg/dl (8.4-10.2); CREATININE 1.33 mg/dl (0.61-1.24); PHOSPHORUS 3.3 mg/dl (2.5-4.9); POTASSIUM 3.6 mmol/L (3.5-5.1)
[2017-06-24] MEDS: ASPIRIN 81 MG TAB PO SCH (08:46)
[2017-06-24] MEDS: NIFEdipine (XL) 30 MG TAB PO SCH ×2 (08:46→20:47)
--- NOTE | 2017-06-24 08:46 | CONS ---
Date/Time of Note Date/Time of Note DATE: 06/24/17 TIME: 08:42 Assessment/Plan Assessment/Plan Problems: (1) ARF (acute renal failure) Comment: Cr down to 1.33, and stable... renal GABRIELA (-) x evidence for some CKD... no hydro...UA unremarkable... no further w/u rec at this time... prob mild CKD due to HTN Nephrosclerosis (2) Hypertension Status: Acute Comment: controlled (3) Hemoptysis Status: Acute Comment: w/u in progress... asx now... nl O2 on RA... is afeb Consultation Date/Type/Reason Admit Date/Time Jun 23, 2017 at 04:59 Initial Consult Date 06/23/17 Type of Consultation: renal 24 HR Interval Summary Free Text/Dictation no complaints... eating breakfast on RA Exam/Review of Systems Vital Signs Vitals Vital Signs Date Time Temp Pulse Resp B/P Pulse Ox O2 Delivery O2 Flow Rate FiO2 06/24/17 08:30 98.1 65 20 132/89 95 06/23/17 14:30 21 06/23/17 07:38 Room Air Intake and Output 06/23/17 06/23/17 06/24/17 15:00 23:00 07:00 Intake Total 950 ml 1300 ml Output Total 300 ml Balance 950 ml 1000 ml Exam Constitutional: alert, oriented Psych: no complaints Head: normocephalic Neck: supple Respiratory: clear to auscultation Cardiovascular: regular rate and rhythm Gastrointestinal: soft Extremities: edema (none) Results Result Diagram: 06/24/17 0641 06/24/17 0641 Results 24 hrs Laboratory Tests Test 06/23/17 15:50 06/24/17 06:41 Urine Color STRAW Urine Clarity CLEAR Urine pH 7.0 Urine Specific [place] 1.013 Urine Ketones NEGATIVE Urine Nitrite NEGATIVE Urine Bilirubin NEGATIVE Urine Urobilinogen NEGATIVE Urine Leukocyte Esterase NEGATIVE Urine Hemoglobin NEGATIVE Urine Random Creatinine 69.10 Urine Random Sodium 114 H Urine Protein/Creatinine Ratio 0.40 Urine Glucose 1+ H Urine Total Protein 28.0 H Urine Opiates Screen Negative Urine Barbiturates Negative Urine Amphetamines Screen POSITIVE Urine Benzodiazepines Screen Negative Urine Cocaine Screen Negative Urine Cannabinoids Negative White Blood Count 8.6 # Red Blood Count 3.96 L Hemoglobin 11.6 L Hematocrit 36.8 L Mean Corpuscular Volume 92.9 Mean Corpuscular Hemoglobin 29.3 Mean Corpuscular Hemoglobin Concent 31.5 L Red Cell Distribution Width 13.0 Platelet Count 187 Mean Platelet Volume 9.7 Neutrophils % 69.1 Lymphocytes % 19.6 Monocytes % 8.7 Eosinophils % 2.1 Basophils % 0.3 Nucleated Red Blood Cells % 0.0 Neutrophils # 5.9 Lymphocytes # 1.7 Monocytes # 0.8 Eosinophils # 0.2 Basophils # 0.0 Nucleated Red Blood Cells # 0.0 D-Dimer 320.75 D-Dimer Comment Sodium Level 141 Potassium Level 3.6 Chloride Level 109 Carbon Dioxide Level 25 Anion Gap 11 Blood Urea Nitrogen 17 Creatinine 1.33 H Glucose Level 133 # Calcium Level 8.8 Phosphorus Level 3.3 Magnesium Level 2.0 Medications Medications Current Medications Lorazepam (Ativan) 0.5 mg Q8H PRN PO ANXIETY; Start 06/23/17 at 07:30 Ondansetron HCl (Zofran Inj) 4 mg Q6H PRN IV NAUSEA AND/OR VOMITING; Start at 07:30 Acetaminophen (Tylenol Tab) 650 mg Q6H PRN PO PAIN LEVEL 1-3 OR FEVER; Start at 07:30 Morphine Sulfate (morphine) 2 mg Q4H PRN IV PAIN LEVEL 7-10; Start 06/23/17 at 07:30 Aspirin (Aspirin) 81 mg DAILY PO Last administered on 06/23/17 09:04; Admin Dose 81 MG; Start 06/23/17 at 09:00 Hydralazine HCl 10 mg 10 mg Q4H PRN IV SBP > 160; Start 06/23/17 at 07:30 Levofloxacin/ Dextrose (Levaquin 500mg/ D5W 100 ml (Pmx)) 100 ml @ 100 mls/hr Q24H IVPB Last administered on 06/24/17 05:22; Admin Dose 100 MLS/HR; Start at 04:00 Pantoprazole (Protonix Tab) 40 mg BID@06,18 PO Last administered on 06/24/17 05:22; Admin Dose 40 MG; Start 06/23/17 at 18:00 Clonidine (Catapres) 0.1 mg Q6H PO Last administered on 06/23/17 18:25; Admin Dose 0.1 MG; Start 06/23/17 at 12:30 Nifedipine (Procardia Xl) 30 mg BID PO Last administered on 06/23/17t 20:14; Admin Dose 30 MG; Start 06/23/17 at 13:00 ASHLEY BLISS MD Jun 24, 2017 08:46
--- NOTE | 2017-06-24 09:24 | PN ---
Date/Time of Note Date/Time of Note DATE: 06/24/17 TIME: 09:21 Assessment/Plan VTE Prophylaxis VTE Prophylaxis Intervention: contraindicated Lines/Catheters IV Catheter Type (from [facility]): Peripheral IV Assessment/Plan Problems: (1) Hemoptysis Status: Acute Comment: Attempting to do the workup. Given that were having trouble with the nursing staff collecting the specimen I will go ahead and order a QuantiFERON gold (2) Pneumonia Status: Acute Comment: Patient with hemoptysis. Improving on antibiotic therapy. Likely not TB. Qualifiers: Pneumonia type: due to unspecified organism Laterality: right Lung location: lower lobe of lung Qualified Code: J18.1 - Pneumonia of right lower lobe due to infectious organism (3) Accelerated hypertension Status: Acute Comment: Blood pressure is adequately controlled. Please note that he is off of the ANNAMARIE inhibitor he is off of the diuretics he is on a dihydropyridine and actually relatively low dose. I will check a postvoid residual and if appropriate add an alpha blockade therapy (4) Kidney disease, chronic, stage II (GFR 60-89 ml/min) Status: Chronic Comment: Review of the information we have dating back over a year demonstrates that his serum creatinine had a low of 1.1 and actually averages where he is now. Medication adjustment as appropriate (5) Anemia Status: Acute Comment: Noted. Watch carefully Qualifiers: Anemia type: unspecified type Qualified Code: D64.9 - Anemia, unspecified type (6) Diastolic dysfunction Status: Chronic Comment: Noted. It was very mild on the echo one year ago. 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 Note sputum for AFB has not been collected Constitutional: no complaints (Eyes fevers chills or sweats) Respiratory: cough, sputum (Hemoptysis) Cardiovascular: no complaints Gastrointestinal: no complaints Genitourinary: no complaints Exam/Review of Systems Vital Signs Vitals Vital Signs Date Time Temp Pulse Resp B/P Pulse Ox O2 Delivery O2 Flow Rate FiO2 06/24/17 08:30 98.1 65 20 132/89 95 06/23/17 14:30 21 06/23/17 07:38 Room Air Intake and Output 06/23/17 06/23/17 06/24/17 15:00 23:00 07:00 Intake Total 950 ml 1300 ml Output Total 300 ml Balance 950 ml 1000 ml Exam Constitutional: alert, oriented Neck: non-tender, supple Respiratory: clear to auscultation, normal air movement Cardiovascular: nl pulses, regular rate and rhythm Results Result Diagram: 06/24/17 0641 06/24/17 0641 Results 24 hrs Laboratory Tests Test 06/23/17 15:50 06/24/17 06:41 Urine Color STRAW Urine Clarity CLEAR Urine pH 7.0 Urine Specific [place] 1.013 Urine Ketones NEGATIVE Urine Nitrite NEGATIVE Urine Bilirubin NEGATIVE Urine Urobilinogen NEGATIVE Urine Leukocyte Esterase NEGATIVE Urine Hemoglobin NEGATIVE Urine Random Creatinine 69.10 Urine Random Sodium 114 H Urine Protein/Creatinine Ratio 0.40 Urine Glucose 1+ H Urine Total Protein 28.0 H Urine Opiates Screen Negative Urine Barbiturates Negative Urine Amphetamines Screen POSITIVE Urine Benzodiazepines Screen Negative Urine Cocaine Screen Negative Urine Cannabinoids Negative White Blood Count 8.6 # Red Blood Count 3.96 L Hemoglobin 11.6 L Hematocrit 36.8 L Mean Corpuscular Volume 92.9 Mean Corpuscular Hemoglobin 29.3 Mean Corpuscular Hemoglobin Concent 31.5 L Red Cell Distribution Width 13.0 Platelet Count 187 Mean Platelet Volume 9.7 Neutrophils % 69.1 Lymphocytes % 19.6 Monocytes % 8.7 Eosinophils % 2.1 Basophils % 0.3 Nucleated Red Blood Cells % 0.0 Neutrophils # 5.9 Lymphocytes # 1.7 Monocytes # 0.8 Eosinophils # 0.2 Basophils # 0.0 Nucleated Red Blood Cells # 0.0 D-Dimer 320.75 D-Dimer Comment Sodium Level 141 Potassium Level 3.6 Chloride Level 109 Carbon Dioxide Level 25 Anion Gap 11 Blood Urea Nitrogen 17 Creatinine 1.33 H Glucose Level 133 # Calcium Level 8.8 Phosphorus Level 3.3 Magnesium Level 2.0 Medications Medications Current Medications Lorazepam (Ativan) 0.5 mg Q8H PRN PO ANXIETY; Start 06/23/17 at 07:30 Ondansetron HCl (Zofran Inj) 4 mg Q6H PRN IV NAUSEA AND/OR VOMITING; Start at 07:30 Acetaminophen (Tylenol Tab) 650 mg Q6H PRN PO PAIN LEVEL 1-3 OR FEVER; Start at 07:30 Morphine Sulfate (morphine) 2 mg Q4H PRN IV PAIN LEVEL 7-10; Start 06/23/17 at 07:30 Aspirin (Aspirin) 81 mg DAILY PO Last administered on 06/24/17 08:46; Admin Dose 81 MG; Start 06/23/17 at 09:00 Hydralazine HCl 10 mg 10 mg Q4H PRN IV SBP > 160; Start 06/23/17 at 07:30 Levofloxacin/ Dextrose (Levaquin 500mg/ D5W 100 ml (Pmx)) 100 ml @ 100 mls/hr Q24H IVPB Last administered on 06/24/17 05:22; Admin Dose 100 MLS/HR; Start at 04:00 Pantoprazole (Protonix Tab) 40 mg BID@06,18 PO Last administered on 06/24/17 05:22; Admin Dose 40 MG; Start 06/23/17 at 18:00 Clonidine (Catapres) 0.1 mg Q6H PO Last administered on 06/23/17 18:25; Admin Dose 0.1 MG; Start 06/23/17 at 12:30 Nifedipine (Procardia Xl) 30 mg BID PO Last administered on 06/24/17 08:46; Admin Dose 30 MG; Start 06/23/17 at 13:00 NEYDA REDD MD Jun 24, 2017 09:24
[2017-06-24] MEDS ORDERED: DOXAZOSIN 1 MG TAB PO ONE (09:30)
[2017-06-24 09:39] LABS: IRON 41 ug/dl (35-150)
[2017-06-24 09:49] LABS: TOTAL IRON BINDING CAPACITY 239 ug/dl (241-421)
[2017-06-24] MEDS: DOXAZOSIN 2 MG TAB PO SCH ×2 (10:37→23:35)
--- NOTE | 2017-06-24 15:41 | CONS ---
Date/Time of Note Date/Time of Note DATE: 06/24/17 TIME: 15:41 Assessment/Plan Assessment/Plan Chief Complaint/Hosp Course ID PROGRESS NOTE CURRENT ABX: Levaquin 24H INTERVAL SUMMARY * Resting comfortably * SCREENING TESTS NEGATIVE: (-)HIV/HBV/HCV * QTF Gold serology pending EXAM GEN: 57 yo M HEENT: Unremarkable NECK: supple CVS: RRR CHEST: Equal chest rise bilaterally, without dyspnea on observation ABD: Soft EXT: No c/c/e NEURO: Grossly intact, moves all extremities SKIN: No diaphoresis, no obvious rash ID ASSESSMENT 57 yo M tobacco smoker admit with: 1. Chronic cough w/hemoptysis, recurrent per notes, w/subjective fevers, night sweats * Patient on daily ASA for hx of CAD/NSTEMI in [place] 2016 * Possibly due to acute pulmonary infection + local cough trauma to bronchus vs alveolar beds 2. Possible CAP per CT: Patchy partial atelectasis/infiltrate at base of right lower lung lobe. 3. Epigastric pain 4. CAD per CT * s/p January 2016 NSTEMI and negative stress test. 5. HTN-> Accelerated on admission 6. Acute kidney injury on chronic kidney disease. Baseline creatinine unknown. 7. Anemia, likely anemia of chronic kidney disease. 8. Right hand carpal tunnel syndrome -> (+)Pain 9. Current tobaccoism 10. Cerebral microvascular disease per 2016 CT Brain: chronic small vessel ischemic changes, related to hypertension. Possible remote bleed. \CURRENT ABX: Levaquin ID RECOMMENDATIONS 1. Continue Levaquin 2. Wait for QTFG vs place PPD which will result 1st ? Problems: Consultation Date/Type/Reason Admit Date/Time Jun 23, 2017 at 04:59 Initial Consult Date 06/23/17 Type of Consultation: ID Exam/Review of Systems Vital Signs Vitals Vital Signs Date Time Temp Pulse Resp B/P Pulse Ox O2 Delivery O2 Flow Rate FiO2 06/24/17 15:25 98.2 69 20 139/82 97 06/23/17 14:30 21 06/23/17 07:38 Room Air Intake and Output 06/23/17 06/23/17 06/24/17 15:00 23:00 07:00 Intake Total 950 ml 1300 ml Output Total 300 ml Balance 950 ml 1000 ml Results Result Diagram: 06/24/17 0641 06/24/17 0641 Results 24 hrs Laboratory Tests Test 06/23/17 15:50 06/24/17 06:41 Urine Color STRAW Urine Clarity CLEAR Urine pH 7.0 Urine Specific [place] 1.013 Urine Ketones NEGATIVE Urine Nitrite NEGATIVE Urine Bilirubin NEGATIVE Urine Urobilinogen NEGATIVE Urine Leukocyte Esterase NEGATIVE Urine Hemoglobin NEGATIVE Urine Random Creatinine 69.10 Urine Random Sodium 114 H Urine Protein/Creatinine Ratio 0.40 Urine Glucose 1+ H Urine Total Protein 28.0 H Urine Opiates Screen Negative Urine Barbiturates Negative Urine Amphetamines Screen POSITIVE Urine Benzodiazepines Screen Negative Urine Cocaine Screen Negative Urine Cannabinoids Negative White Blood Count 8.6 # Red Blood Count 3.96 L Hemoglobin 11.6 L Hematocrit 36.8 L Mean Corpuscular Volume 92.9 Mean Corpuscular Hemoglobin 29.3 Mean Corpuscular Hemoglobin Concent 31.5 L Red Cell Distribution Width 13.0 Platelet Count 187 Mean Platelet Volume 9.7 Neutrophils % 69.1 Lymphocytes % 19.6 Monocytes % 8.7 Eosinophils % 2.1 Basophils % 0.3 Nucleated Red Blood Cells % 0.0 Neutrophils # 5.9 Lymphocytes # 1.7 Monocytes # 0.8 Eosinophils # 0.2 Basophils # 0.0 Nucleated Red Blood Cells # 0.0 D-Dimer 320.75 D-Dimer Comment Sodium Level 141 Potassium Level 3.6 Chloride Level 109 Carbon Dioxide Level 25 Anion Gap 11 Blood Urea Nitrogen 17 Creatinine 1.33 H Glucose Level 133 # Calcium Level 8.8 Phosphorus Level 3.3 Magnesium Level 2.0 Iron Level 41 Total Iron Binding Capacity 239 L Percent Iron Saturation 17 L Ferritin 65.9 Hepatitis B Surface Antigen NEGATIVE Hepatitis C Antibody NEGATIVE Medications Medications Current Medications Lorazepam (Ativan) 0.5 mg Q8H PRN PO ANXIETY; Start 06/23/17 at 07:30 Ondansetron HCl (Zofran Inj) 4 mg Q6H PRN IV NAUSEA AND/OR VOMITING; Start at 07:30 Acetaminophen (Tylenol Tab) 650 mg Q6H PRN PO PAIN LEVEL 1-3 OR FEVER; Start at 07:30 Morphine Sulfate (morphine) 2 mg Q4H PRN IV PAIN LEVEL 7-10; Start 06/23/17 at 07:30 Aspirin (Aspirin) 81 mg DAILY PO Last administered on 06/24/17t 08:46; Admin Dose 81 MG; Start 06/23/17 at 09:00 Hydralazine HCl 10 mg 10 mg Q4H PRN IV SBP > 160; Start 06/23/17 at 07:30 Levofloxacin/ Dextrose (Levaquin 500mg/ D5W 100 ml (Pmx)) 100 ml @ 100 mls/hr Q24H IVPB Last administered on 06/24/17 05:22; Admin Dose 100 MLS/HR; Start at 04:00 Pantoprazole (Protonix Tab) 40 mg BID@06,18 PO Last administered on 06/24/17 05:22; Admin Dose 40 MG; Start 06/23/17 at 18:00 Clonidine (Catapres) 0.1 mg Q6H PO Last administered on 06/23/17 18:25; Admin Dose 0.1 MG; Start 06/23/17 at 12:30 Nifedipine (Procardia Xl) 30 mg BID PO Last administered on 06/24/17 08:46; Admin Dose 30 MG; Start 06/23/17 at 13:00 Doxazosin Mesylate (Cardura) 2 mg HS PO Last administered on 06/24/17 10:37; Admin Dose 2 MG; Start 06/24/17 at 21:00 ROYER PHILLIPS NP Jun 24, 2017 15:41 Clonidine (Catapres) 0.1 mg Q6H PO Last administered on 06/23/17 18:25; Admin Dose 0.1 MG; Start 06/23/17 at 12:30 Nifedipine (Procardia Xl) 30 mg BID PO Last administered on 06/24/17 08:46; Admin Dose 30 MG; Start 06/23/17 at 13:00 Doxazosin Mesylate (Cardura) 2 mg HS PO Last administered on 06/24/17 10:37; Admin Dose 2 MG; Start 06/24/17 at 21:00 ROYER PHILLIPS NP Jun 24, 2017 15:41
--- NOTE | 2017-06-24 16:11 | CONS ---
DATE OF ADMISSION: 06/23/2017 DATE OF CONSULTATION: 06/23/2017 REASON FOR CONSULTATION: Antibiotic management. CHIEF COMPLAINT: Vinayak Becerra is a 57-year-old homeless male who comes to the emergency room for evaluation of progressive malaise, nightsweats and hemoptysis. PROBLEM LIST: 1. Hypertension. 2. Chronic renal disease. 3. Diastolic heart failure. 4. Right hand carpal tunnel syndrome. 5. Nicotine abuse. 6. Noncompliance. 7. Former methamphetamine abuser. He presents to the emergency room with hemoptysis. He has progressive nocturnal dyspnea. On admission, his temp was 99.1. H and H of 11.9 and 35.7. On the , his white count was 6.7. H and H of 11.1, 34.7, platelet count 159,000. BUN and creatinine 19/1.34. Random glucose was 81. PAST MEDICAL AND SURGICAL HISTORY: As outlined. FAMILY HISTORY: Noncontributory. SOCIAL HISTORY: He is a former methamphetamine abuser. He has occasional social alcohol use. He is an every day smoker. ALLERGIES: NONE TO PENICILLIN, SULFA, OR FOODS. MEDICATIONS: Per chart. REVIEW OF SYSTEMS: As per HPI. PHYSICAL EXAMINATION: GENERAL: Patient is a well-developed male who is awake, responsive in no acute distress. VITAL SIGNS: Stable. He is afebrile. SKIN: Somewhat diaphoretic without rash or icterus. HEENT: Within normal limits. NECK: Supple. Lymph nodes nonpalpable. CHEST: Decreased breath sounds at the bases. HEART: Without murmur or gallop. ABDOMEN: Soft, nontender, without organosplenomegaly or masses. EXTREMITIES: Without cyanosis, clubbing, or edema. RECTAL: Deferred. GENITOURINARY: Deferred. NEUROLOGICAL: No focal neurological abnormalities. LABORATORY: His white count today is 8.6. He is negative for hepatitis B surface antigen and hepatitis C antibody. His urine is negative for nitrite and leukocyte esterase. His liver function tests are within normal limits. His chest x-ray shows no evidence for acute cardiopulmonary disease. A CT scan of the chest shows patchy partial atelectasis/infiltrate at the base of the right lower lung. A renal ultrasound showed bilateral hyperechoic kidneys consistent with medical renal disease. No hydronephrosis. Lung scan, low probability for pulmonary emboli. Urine and blood cultures were negative. Patient was started on Levaquin. Blood cultures were done. An AFB culture and smear was ordered. Urine cultures were done. IMPRESSION AND PLAN: There is no evidence at this point to consider tuberculosis aside from his hemoptysis, which is probably caused by bronchiectasis. We will await the smears for acid-fast bacilli. I will dictate my findings to the hospitalists, Dr. Davies, as well as Dr. Adam, Dr. Vera and Dr. Duncan. Dictated By: Rich Diaz MD JD/mattie/g /Document#: [id number]
--- NOTE | 2017-06-24 18:53 | CONS ---
Date/Time of Note Date/Time of Note DATE: 06/24/17 TIME: 18:51 Consult Date/Type/Reason Admit Date/Time Jun 23, 2017 at 04:59 Initial Consult Date 06/23/17 Type of Consultation: Pulm Subjective No events. No further hemoptysis per RN Objective Vital Signs Date Time Temp Pulse Resp B/P Pulse Ox O2 Delivery O2 Flow Rate FiO2 06/24/17 16:03 62 06/24/17 15:25 98.2 20 139/82 97 06/23/17 14:30 21 06/23/17 07:38 Room Air Intake and Output 06/23/17 06/23/17 06/24/17 15:00 23:00 07:00 Intake Total 950 ml 1300 ml Output Total 300 ml Balance 950 ml 1000 ml Exam HEENT: Neck supple; no JVD; no LAD CVS: RRR, S1 and S2 CHEST: Clear ABD: Soft, NT, + BS EXT: No c/c/e Results/Medications Result Diagram: 06/24/17 0641 06/24/17 0641 Results 24 hrs Laboratory Tests Test 06/24/17 06:41 White Blood Count 8.6 # Red Blood Count 3.96 L Hemoglobin 11.6 L Hematocrit 36.8 L Mean Corpuscular Volume 92.9 Mean Corpuscular Hemoglobin 29.3 Mean Corpuscular Hemoglobin Concent 31.5 L Red Cell Distribution Width 13.0 Platelet Count 187 Mean Platelet Volume 9.7 Neutrophils % 69.1 Lymphocytes % 19.6 Monocytes % 8.7 Eosinophils % 2.1 Basophils % 0.3 Nucleated Red Blood Cells % 0.0 Neutrophils # 5.9 Lymphocytes # 1.7 Monocytes # 0.8 Eosinophils # 0.2 Basophils # 0.0 Nucleated Red Blood Cells # 0.0 D-Dimer 320.75 D-Dimer Comment Sodium Level 141 Potassium Level 3.6 Chloride Level 109 Carbon Dioxide Level 25 Anion Gap 11 Blood Urea Nitrogen 17 Creatinine 1.33 H Glucose Level 133 # Calcium Level 8.8 Phosphorus Level 3.3 Magnesium Level 2.0 Iron Level 41 Total Iron Binding Capacity 239 L Percent Iron Saturation 17 L Ferritin 65.9 Hepatitis B Surface Antigen NEGATIVE Hepatitis C Antibody NEGATIVE Medications Current Medications Lorazepam (Ativan) 0.5 mg Q8H PRN PO ANXIETY; Start 06/23/17 at 07:30 Ondansetron HCl (Zofran Inj) 4 mg Q6H PRN IV NAUSEA AND/OR VOMITING; Start at 07:30 Acetaminophen (Tylenol Tab) 650 mg Q6H PRN PO PAIN LEVEL 1-3 OR FEVER; Start at 07:30 Morphine Sulfate (morphine) 2 mg Q4H PRN IV PAIN LEVEL 7-10; Start 06/23/17 at 07:30 Aspirin (Aspirin) 81 mg DAILY PO Last administered on 06/24/17 08:46; Admin Dose 81 MG; Start 06/23/17 at 09:00 Hydralazine HCl 10 mg 10 mg Q4H PRN IV SBP > 160; Start 06/23/17 at 07:30 Levofloxacin/ Dextrose (Levaquin 500mg/ D5W 100 ml (Pmx)) 100 ml @ 100 mls/hr Q24H IVPB Last administered on 06/24/17 05:22; Admin Dose 100 MLS/HR; Start at 04:00 Pantoprazole (Protonix Tab) 40 mg BID@06,18 PO Last administered on 06/24/17 17:34; Admin Dose 40 MG; Start 06/23/17 at 18:00 Clonidine (Catapres) 0.1 mg Q6H PO Last administered on 06/24/17 17:38; Admin Dose 0.1 MG; Start 06/23/17 at 12:30 Nifedipine (Procardia Xl) 30 mg BID PO Last administered on 06/24/17 08:46; Admin Dose 30 MG; Start 06/23/17 at 13:00 Doxazosin Mesylate (Cardura) 2 mg HS PO Last administered on 06/24/17 10:37; Admin Dose 2 MG; Start 06/24/17 at 21:00 Assessment/Plan Additional Assessment/Plan IMP: 1. Hemopysis: likely due to bronchitis/mild ectatic disease 2. RLL peripheral GGO--likely aspirated blood RECS: 1. Quantify all hemoptysis 2. Bronchoscopy if there is continuation of hemoptysis 3. Repeat CT chest in 2-3 months (prone imaging) KELBY EVANS MD Jun 24, 2017 18:53
[2017-06-25 02:04] VITALS: BP 140/88; RESP 18
[2017-06-25] MEDS: LEVOFLOXACIN 500MG/D5W (PMX) 100 ML IVPB SCH (03:05)
[2017-06-25] MEDS: PANTOPRAZOLE (EC) 40 MG TAB PO SCH ×2 (05:05→17:32)
[2017-06-25 08:11] VITALS: BP 134/77; RESP 18
--- NOTE | 2017-06-25 08:38 | CONS ---
Date/Time of Note Date/Time of Note DATE: 06/25/17 TIME: 08:36 Assessment/Plan Assessment/Plan Problems: (1) Hemoptysis Status: Acute Comment: no recurrence (2) ARF (acute renal failure) Status: Resolved Comment: resolved, altho THIS AM's labs are still pd Qualifiers: Acute renal failure type: unspecified Qualified Code: N17.9 - Acute renal failure, unspecified acute renal failure type (3) Kidney disease, chronic, stage II (GFR 60-89 ml/min) Status: Chronic Comment: Cr stable at 1.33... this ams labs are Still PD Consultation Date/Type/Reason Admit Date/Time Jun 23, 2017 at 04:59 Initial Consult Date 06/23/17 Type of Consultation: renal 24 HR Interval Summary Free Text/Dictation stable... no c/o... good UOP Exam/Review of Systems Vital Signs Vitals Vital Signs Date Time Temp Pulse Resp B/P Pulse Ox O2 Delivery O2 Flow Rate FiO2 06/25/17 08:11 97.7 81 18 134/77 100 06/23/17 14:30 21 06/23/17 07:38 Room Air Intake and Output 06/24/17 06/24/17 06/25/17 15:00 23:00 07:00 Intake Total 1200 ml 1020 ml Output Total 300 ml 900 ml 600 ml Balance -300 ml 300 ml 420 ml Exam Constitutional: alert, oriented Head: normocephalic Neck: supple Respiratory: clear to auscultation Cardiovascular: regular rate and rhythm Gastrointestinal: soft Extremities: edema (none) Results Result Diagram: 06/24/17 0641 06/24/17 0641 Medications Medications Current Medications Lorazepam (Ativan) 0.5 mg Q8H PRN PO ANXIETY; Start 06/23/17 at 07:30 Ondansetron HCl (Zofran Inj) 4 mg Q6H PRN IV NAUSEA AND/OR VOMITING; Start at 07:30 Acetaminophen (Tylenol Tab) 650 mg Q6H PRN PO PAIN LEVEL 1-3 OR FEVER; Start at 07:30 Morphine Sulfate (morphine) 2 mg Q4H PRN IV PAIN LEVEL 7-10; Start 06/23/17 at 07:30 Aspirin (Aspirin) 81 mg DAILY PO Last administered on 06/24/17 08:46; Admin Dose 81 MG; Start 06/23/17 at 09:00 Hydralazine HCl 10 mg 10 mg Q4H PRN IV SBP > 160; Start 06/23/17 at 07:30 Levofloxacin/ Dextrose (Levaquin 500mg/ D5W 100 ml (Pmx)) 100 ml @ 100 mls/hr Q24H IVPB Last administered on 06/25/17 03:05; Admin Dose 100 MLS/HR; Start at 04:00 Pantoprazole (Protonix Tab) 40 mg BID@06,18 PO Last administered on 06/25/17 05:05; Admin Dose 40 MG; Start 06/23/17 at 18:00 Clonidine (Catapres) 0.1 mg Q6H PO Last administered on 06/24/17 23:36; Admin Dose 0.1 MG; Start 06/23/17 at 12:30 Nifedipine (Procardia Xl) 30 mg BID PO Last administered on 06/24/17 20:47; Admin Dose 30 MG; Start 06/23/17 at 13:00 Doxazosin Mesylate (Cardura) 2 mg HS PO Last administered on 06/24/17 23:35; Admin Dose 2 MG; Start 06/24/17 at 21:00 ASHLEY BLISS MD Jun 25, 2017 08:38
[2017-06-25] MEDS: ASPIRIN 81 MG TAB PO SCH (09:42)
[2017-06-25] MEDS: NIFEdipine (XL) 30 MG TAB PO SCH ×2 (09:42→20:38)
--- NOTE | 2017-06-25 09:46 | PN ---
Date/Time of Note Date/Time of Note DATE: 06/25/17 TIME: 09:42 Assessment/Plan VTE Prophylaxis VTE Prophylaxis Intervention: SCD's Lines/Catheters IV [facility] Urinary Cath still in place: No Assessment/Plan Problems: (1) Iron deficiency anemia Status: Chronic Comment: I will give him a single dose of Ferrlecit here in the hospital. Will need a GI tract evaluation as an outpatient which can be coordinated by his primary care physician Dr. Jelani Campuzano Qualifiers: Iron deficiency anemia type: unspecified iron deficiency Qualified Code: D50.9 - Iron deficiency anemia, unspecified iron deficiency anemia type (2) Diastolic dysfunction Status: Chronic Comment: Noted and controlled with medication (3) Noncompliance Status: Chronic Comment: Counseled again. Please note actually believe this patient is trying to get it turned around (4) Kidney disease, chronic, stage II (GFR 60-89 ml/min) Status: Chronic Comment: Stable renal function at this time (5) Hypertension Status: Acute Comment: Essential hypertension inadequately controlled. (6) Homeless Status: Acute Comment: She is anxious to get discharged so he can go back to school. I actually believe this man is working on it diligently. (7) Hemoptysis Status: Acute Comment: I am in agreement with both pulmonary and infectious disease of the likelihood that this represents tuberculosis is extremely small. However we do not have the specimens to the lab yet. We will try and get those labs specimens over there. Subjective 24 Hr Interval Summary Free Text/Dictation Patient reports hemoptysis has stopped. Please note he has collected the sputum specimens which are sitting at the bedside Constitutional: no complaints (No fevers chills or sweats) Respiratory: no complaints (Reports his breathing is improving and his cough is decreasing) Cardiovascular: no complaints Gastrointestinal: no complaints Genitourinary: no complaints Exam/Review of Systems Vital Signs Vitals Vital Signs Date Time Temp Pulse Resp B/P Pulse Ox O2 Delivery O2 Flow Rate FiO2 06/25/17 08:11 97.7 81 18 134/77 100 06/23/17 14:30 21 06/23/17 07:38 Room Air Intake and Output 06/24/17 06/24/17 06/25/17 15:00 23:00 07:00 Intake Total 1200 ml 1020 ml Output Total 300 ml 900 ml 600 ml Balance -300 ml 300 ml 420 ml Exam Constitutional: alert, oriented Neck: non-tender, supple Respiratory: clear to auscultation, normal air movement Cardiovascular: nl pulses, regular rate and rhythm Gastrointestinal: nl liver, spleen, non-tender, soft Results Result Diagram: 06/24/1764006/24/17640 Medications Medications Current Medications Lorazepam (Ativan) 0.5 mg Q8H PRN PO ANXIETY; Start 06/23/17 at 07:30 Ondansetron HCl (Zofran Inj) 4 mg Q6H PRN IV NAUSEA AND/OR VOMITING; Start at 07:30 Acetaminophen (Tylenol Tab) 650 mg Q6H PRN PO PAIN LEVEL 1-3 OR FEVER; Start at 07:30 Morphine Sulfate (morphine) 2 mg Q4H PRN IV PAIN LEVEL 7-10; Start 06/23/17 at 07:30 Aspirin (Aspirin) 81 mg DAILY PO Last administered on 06/24/17 08:46; Admin Dose 81 MG; Start 06/23/17 at 09:00 Hydralazine HCl 10 mg 10 mg Q4H PRN IV SBP > 160; Start 06/23/17 at 07:30 Levofloxacin/ Dextrose (Levaquin 500mg/ D5W 100 ml (Pmx)) 100 ml @ 100 mls/hr Q24H IVPB Last administered on 06/25/17 03:05; Admin Dose 100 MLS/HR; Start at 04:00 Pantoprazole (Protonix Tab) 40 mg BID@06,18 PO Last administered on 06/25/17 05:05; Admin Dose 40 MG; Start 06/23/17 at 18:00 Clonidine (Catapres) 0.1 mg Q6H PO Last administered on 06/24/17 23:36; Admin Dose 0.1 MG; Start 06/23/17 at 12:30 Nifedipine (Procardia Xl) 30 mg BID PO Last administered on 06/24/17 20:47; Admin Dose 30 MG; Start 06/23/17 at 13:00 Doxazosin Mesylate (Cardura) 2 mg HS PO Last administered on 06/24/17 23:35; Admin Dose 2 MG; Start 06/24/17 at 21:00 NEYDA REDD MD Jun 25, 2017 09:45
[2017-06-25 10:05] LABS: CALCIUM 8.9 mg/dl (8.4-10.2); CREATININE 1.29 mg/dl (0.61-1.24); POTASSIUM 3.7 mmol/L (3.5-5.1)
[2017-06-25] MEDS ORDERED: SOD FERRIC GLUC COMPLX 125 MG in SOD CHLORIDE 0.9% 100 ML IVPB ONE (11:00)
[2017-06-25 14:00] VITALS: BP 141/75; RESP 18
--- NOTE | 2017-06-25 17:30 | CONS ---
Date/Time of Note Date/Time of Note DATE: 06/25/17 TIME: 17:28 Consult Date/Type/Reason Admit Date/Time Jun 23, 2017 at 04:59 Initial Consult Date 06/23/17 Type of Consultation: Pulm Subjective No further hemoptysis Objective Vital Signs Date Time Temp Pulse Resp B/P Pulse Ox O2 Delivery O2 Flow Rate FiO2 06/25/17 14:00 98.2 75 18 141/75 91 06/23/17 14:30 21 06/23/17 07:38 Room Air Intake and Output 06/24/17 06/24/17 06/25/17 15:00 23:00 07:00 Intake Total 1200 ml 1020 ml Output Total 300 ml 900 ml 600 ml Balance -300 ml 300 ml 420 ml Exam HEENT: Neck supple; no JVD; no LAD CVS: RRR, S1 and S2 CHEST: Clear ABD: Soft, NT, + BS EXT: No c/c/e Results/Medications Result Diagram: 06/24/17 0641 06/25/17 0921 Results 24 hrs Laboratory Tests Test 06/25/17 09:21 Sodium Level 139 Potassium Level 3.7 Chloride Level 109 Carbon Dioxide Level 24 Anion Gap 10 Blood Urea Nitrogen 20 Creatinine 1.29 H Glucose Level 118 Calcium Level 8.9 Medications Current Medications Lorazepam (Ativan) 0.5 mg Q8H PRN PO ANXIETY; Start 06/23/17 at 07:30 Ondansetron HCl (Zofran Inj) 4 mg Q6H PRN IV NAUSEA AND/OR VOMITING; Start at 07:30 Acetaminophen (Tylenol Tab) 650 mg Q6H PRN PO PAIN LEVEL 1-3 OR FEVER; Start at 07:30 Morphine Sulfate (morphine) 2 mg Q4H PRN IV PAIN LEVEL 7-10; Start 06/23/17 at 07:30 Aspirin (Aspirin) 81 mg DAILY PO Last administered on 06/25/17 09:42; Admin Dose 81 MG; Start 06/23/17 at 09:00 Hydralazine HCl 10 mg 10 mg Q4H PRN IV SBP > 160; Start 06/23/17 at 07:30 Levofloxacin/ Dextrose (Levaquin 500mg/ D5W 100 ml (Pmx)) 100 ml @ 100 mls/hr Q24H IVPB Last administered on 06/25/17 03:05; Admin Dose 100 MLS/HR; Start at 04:00 Pantoprazole (Protonix Tab) 40 mg BID@06,18 PO Last administered on 06/25/17 05:05; Admin Dose 40 MG; Start 06/23/17 at 18:00 Clonidine (Catapres) 0.1 mg Q6H PO Last administered on 06/25/17 12:25; Admin Dose 0.1 MG; Start 06/23/17 at 12:30 Nifedipine (Procardia Xl) 30 mg BID PO Last administered on 06/25/17 09:42; Admin Dose 30 MG; Start 06/23/17 at 13:00 Doxazosin Mesylate (Cardura) 2 mg HS PO Last administered on 06/24/17 23:35; Admin Dose 2 MG; Start 06/24/17 at 21:00 Assessment/Plan Additional Assessment/Plan IMP: 1. Hemopysis: likely due to bronchitis/mild ectatic disease 2. RLL peripheral GGO--likely aspirated blood RECS: 1. Quantify all hemoptysis 2. Repeat CT chest in 2-3 months (prone imaging) 3. d/c planning KELBY EVANS MD Jun 25, 2017 17:30
--- NOTE | 2017-06-25 18:02 | CONS ---
Date/Time of Note Date/Time of Note DATE: 06/25/17 TIME: 18:00 Assessment/Plan Assessment/Plan Chief Complaint/Hosp Course ID PROGRESS NOTE CURRENT ABX: Levaquin 24H INTERVAL SUMMARY * Stable, no further hemoptysis, resting comfortably * SCREENING TESTS NEGATIVE: (-)HIV/HBV/HCV * QTF Gold serology pending EXAM GEN: 57 yo M HEENT: Unremarkable NECK: supple CVS: RRR CHEST: Equal chest rise bilaterally, without dyspnea on observation ABD: Soft EXT: No c/c/e NEURO: Grossly intact, moves all extremities SKIN: No diaphoresis, no obvious rash ID ASSESSMENT 57 yo M tobacco smoker admit with: 1. Chronic cough w/hemoptysis, recurrent per notes, w/subjective fevers, night sweats * Patient on daily ASA for hx of CAD/NSTEMI in JAN 2016 * Probably due to acute pulmonary infection + local cough trauma to bronchus vs alveolar beds 2. Possible CAP per CT: Patchy partial atelectasis/infiltrate at base of right lower lung lobe. 3. Epigastric pain 4. CAD per CT * s/p January 2016 NSTEMI and negative stress test. 5. HTN-> Accelerated on admission 6. Acute kidney injury on chronic kidney disease. Baseline creatinine unknown. 7. Anemia, likely anemia of chronic kidney disease. 8. Right hand carpal tunnel syndrome -> (+)Pain 9. Current tobaccoism 10. Cerebral microvascular disease per 2016 CT Brain: chronic small vessel ischemic changes, related to hypertension. Possible remote bleed. \CURRENT ABX: Levaquin ID RECOMMENDATIONS 1. Continue Levaquin 2. Doubt pulmonary TB Problems: Consultation Date/Type/Reason Admit Date/Time Jun 23, 2017 at 04:59 Initial Consult Date 06/23/17 Type of Consultation: ID Exam/Review of Systems Vital Signs Vitals Vital Signs Date Time Temp Pulse Resp B/P Pulse Ox O2 Delivery O2 Flow Rate FiO2 06/25/17 14:00 98.2 75 18 141/75 91 06/23/17 14:30 21 06/23/17 07:38 Room Air Intake and Output 06/24/17 06/24/17 06/25/17 15:00 23:00 07:00 Intake Total 1200 ml 1020 ml Output Total 300 ml 900 ml 600 ml Balance -300 ml 300 ml 420 ml Results Result Diagram: 06/24/17 0641 06/25/17 0921 Results 24 hrs Laboratory Tests Test 06/25/17 09:21 Sodium Level 139 Potassium Level 3.7 Chloride Level 109 Carbon Dioxide Level 24 Anion Gap 10 Blood Urea Nitrogen 20 Creatinine 1.29 H Glucose Level 118 Calcium Level 8.9 Medications Medications Current Medications Lorazepam (Ativan) 0.5 mg Q8H PRN PO ANXIETY; Start 06/23/17 at 07:30 Ondansetron HCl (Zofran Inj) 4 mg Q6H PRN IV NAUSEA AND/OR VOMITING; Start at 07:30 Acetaminophen (Tylenol Tab) 650 mg Q6H PRN PO PAIN LEVEL 1-3 OR FEVER; Start at 07:30 Morphine Sulfate (morphine) 2 mg Q4H PRN IV PAIN LEVEL 7-10; Start 06/23/17 at 07:30 Aspirin (Aspirin) 81 mg DAILY PO Last administered on 06/25/17 09:42; Admin Dose 81 MG; Start 06/23/17 at 09:00 Hydralazine HCl 10 mg 10 mg Q4H PRN IV SBP > 160; Start 06/23/17 at 07:30 Levofloxacin/ Dextrose (Levaquin 500mg/ D5W 100 ml (Pmx)) 100 ml @ 100 mls/hr Q24H IVPB Last administered on 06/25/17 03:05; Admin Dose 100 MLS/HR; Start at 04:00 Pantoprazole (Protonix Tab) 40 mg BID@06,18 PO Last administered on 06/25/17 17:32; Admin Dose 40 MG; Start 06/23/17 at 18:00 Clonidine (Catapres) 0.1 mg Q6H PO Last administered on 06/25/17 17:33; Admin Dose 0.1 MG; Start 06/23/17 at 12:30 Nifedipine (Procardia Xl) 30 mg BID PO Last administered on 06/25/17 09:42; Admin Dose 30 MG; Start 06/23/17 at 13:00 Doxazosin Mesylate (Cardura) 2 mg HS PO Last administered on 06/24/17 23:35; Admin Dose 2 MG; Start 06/24/17 at 21:00 ROYER PHILLIPS NP Jun 25, 2017 18:02
[2017-06-25 20:21] VITALS: BP 172/98; RESP 18
[2017-06-25] MEDS: DOXAZOSIN 2 MG TAB PO SCH (20:38)
[2017-06-25 22:00] VITALS: BP 152/84
[2017-06-26 02:46] VITALS: BP 142/86; RESP 18
[2017-06-26] MEDS: LEVOFLOXACIN 500MG/D5W (PMX) 100 ML IVPB SCH (03:32)
[2017-06-26] MEDS: PANTOPRAZOLE (EC) 40 MG TAB PO SCH ×2 (05:42→17:30)
[2017-06-26 08:00] VITALS: BP 155/94; RESP 20
--- NOTE | 2017-06-26 08:30 | CONS ---
Date/Time of Note Date/Time of Note DATE: 06/26/17 TIME: 08:28 Assessment/Plan Assessment/Plan Additional Assessment/Plan 1. Renal fx continues to improve toward baseline Scr 1.18, u/a, proteinuria and ultz unrevealing. Once Scr stable could resume ARB with careful follow up. 2. Pnuemonia clinically improving. 3. Will gladly see on request. Consultation Date/Type/Reason Admit Date/Time Jun 23, 2017 at 04:59 Initial Consult Date 06/23/17 Type of Consultation: ID 24 HR Interval Summary Constitutional: other (He is overall feeling better.) Detailed Summary Respiratory: shortness of breath Cardiovascular: No chest pain Gastrointestinal: other (Appetite has increased), No diarrhea, No nausea, No vomiting Genitourinary: No no complaints Exam/Review of Systems Vital Signs Vitals Vital Signs Date Time Temp Pulse Resp B/P Pulse Ox O2 Delivery O2 Flow Rate FiO2 06/26/17 02:46 97.8 79 18 142/86 95 06/23/17 14:30 21 06/23/17 07:38 Room Air Intake and Output 06/25/17 06/25/17 06/26/17 15:00 23:00 07:00 Intake Total 110 ml 640 ml 800 ml Output Total 700 ml 900 ml Balance 110 ml -60 ml -100 ml Results Result Diagram: 06/24/17 0641 06/25/17 0921 Results 24 hrs Laboratory Tests Test 06/25/17 09:21 Sodium Level 139 Potassium Level 3.7 Chloride Level 109 Carbon Dioxide Level 24 Anion Gap 10 Blood Urea Nitrogen 20 Creatinine 1.29 H Glucose Level 118 Calcium Level 8.9 Medications Medications Current Medications Lorazepam (Ativan) 0.5 mg Q8H PRN PO ANXIETY; Start 06/23/17 at 07:30 Ondansetron HCl (Zofran Inj) 4 mg Q6H PRN IV NAUSEA AND/OR VOMITING; Start at 07:30 Acetaminophen (Tylenol Tab) 650 mg Q6H PRN PO PAIN LEVEL 1-3 OR FEVER; Start at 07:30 Morphine Sulfate (morphine) 2 mg Q4H PRN IV PAIN LEVEL 7-10; Start 06/23/17 at 07:30 Aspirin (Aspirin) 81 mg DAILY PO Last administered on 06/25/17t 09:42; Admin Dose 81 MG; Start 06/23/17 at 09:00 Hydralazine HCl 10 mg 10 mg Q4H PRN IV SBP > 160; Start 06/23/17 at 07:30 Levofloxacin/ Dextrose (Levaquin 500mg/ D5W 100 ml (Pmx)) 100 ml @ 100 mls/hr Q24H IVPB Last administered on 06/26/17 03:32; Admin Dose 100 MLS/HR; Start at 04:00 Pantoprazole (Protonix Tab) 40 mg BID@06,18 PO Last administered on 06/26/17 05:42; Admin Dose 40 MG; Start 06/23/17 at 18:00 Clonidine (Catapres) 0.1 mg Q6H PO Last administered on 06/26/17 05:43; Admin Dose 0.1 MG; Start 06/23/17 at 12:30 Nifedipine (Procardia Xl) 30 mg BID PO Last administered on 06/25/17 20:38; Admin Dose 30 MG; Start 06/23/17 at 13:00 Doxazosin Mesylate (Cardura) 2 mg HS PO Last administered on 06/25/17 20:38; Admin Dose 2 MG; Start 06/24/17 at 21:00 CHIKIS SOSA MD Jun 26, 2017 08:30
[2017-06-26] MEDS: ASPIRIN 81 MG TAB PO SCH (08:46)
[2017-06-26] MEDS: NIFEdipine (XL) 30 MG TAB PO SCH (08:46)
--- NOTE | 2017-06-26 10:47 | CONS ---
Date/Time of Note Date/Time of Note DATE: 06/26/17 TIME: 10:45 Assessment/Plan Assessment/Plan Additional Assessment/Plan Assessment and recommendations; 1. Patient admitted with hemoptysis likely from underlying bronchitis. Clinically resolved now. Continue current treatment. Consultation Date/Type/Reason Admit Date/Time Jun 23, 2017 at 04:59 Initial Consult Date 06/23/17 Type of Consultation: Pulmonary 24 HR Interval Summary Free Text/Dictation Condition stable. Denies any further hemoptysis. Denies any coughing wheezing chest pain. Any shortness of breath. General exam; middle-aged male, awake, currently in no distress. Reading a book in bed. Exam/Review of Systems Vital Signs Vitals Vital Signs Date Time Temp Pulse Resp B/P Pulse Ox O2 Delivery O2 Flow Rate FiO2 06/26/17 08:00 98.8 70 20 155/94 98 06/23/17 14:30 21 06/23/17 07:38 Room Air Intake and Output 06/25/17 06/25/17 06/26/17 15:00 23:00 07:00 Intake Total 110 ml 640 ml 800 ml Output Total 700 ml 900 ml Balance 110 ml -60 ml -100 ml Exam HEENT exam; supple neck, no JVD. No lymphadenopathy. Midline trachea. No thyromegaly. Pharynx is clear. Chest exam; clear to auscultation. S1-S2 audible, no murmurs. Regular rhythm. Abdomen exam; soft, no organomegaly. Bowel sounds audible. Extremity exam; no peripheral edema. TIGHTENER exam; no focal deficit. Results Result Diagram: 06/24/17 0641 06/25/17 0921 Medications Medications Current Medications Lorazepam (Ativan) 0.5 mg Q8H PRN PO ANXIETY; Start 06/23/17 at 07:30 Ondansetron HCl (Zofran Inj) 4 mg Q6H PRN IV NAUSEA AND/OR VOMITING; Start at 07:30 Acetaminophen (Tylenol Tab) 650 mg Q6H PRN PO PAIN LEVEL 1-3 OR FEVER; Start at 07:30 Morphine Sulfate (morphine) 2 mg Q4H PRN IV PAIN LEVEL 7-10; Start 06/23/17 at 07:30 Aspirin (Aspirin) 81 mg DAILY PO Last administered on 06/26/17t 08:46; Admin Dose 81 MG; Start 06/23/17 at 09:00 Hydralazine HCl 10 mg 10 mg Q4H PRN IV SBP > 160; Start 06/23/17 at 07:30 Levofloxacin/ Dextrose (Levaquin 500mg/ D5W 100 ml (Pmx)) 100 ml @ 100 mls/hr Q24H IVPB Last administered on 06/26/17 03:32; Admin Dose 100 MLS/HR; Start at 04:00 Pantoprazole (Protonix Tab) 40 mg BID@06,18 PO Last administered on 06/26/17 05:42; Admin Dose 40 MG; Start 06/23/17 at 18:00 Clonidine (Catapres) 0.1 mg Q6H PO Last administered on 06/26/17 05:43; Admin Dose 0.1 MG; Start 06/23/17 at 12:30 Nifedipine (Procardia Xl) 30 mg BID PO Last administered on 06/26/17 08:46; Admin Dose 30 MG; Start 06/23/17 at 13:00 Doxazosin Mesylate (Cardura) 2 mg HS PO Last administered on 06/25/17 20:38; Admin Dose 2 MG; Start 06/24/17 at 21:00 CALDERON ORDAZ Jun 26, 2017 10:47
--- NOTE | 2017-06-26 11:44 | PN ---
Date/Time of Note Date/Time of Note DATE: 06/26/17 TIME: 11:37 Assessment/Plan VTE Prophylaxis VTE Prophylaxis Intervention: SCD's Lines/Catheters IV Catheter Type (from [facility] Urinary Cath still in place: No Assessment/Plan Chief Complaint/Hosp Course 1. Hemopysis: likely due to bronchitis/mild ectatic disease Repeat CT chest in 2-3 months Pulmonology and ID consultations appreciated, likelihood of TB is felt to be very low but her ruling out with AFB sputum cultures 2. RLL peripheral GGO--likely aspirated blood 3. Anemia chronic disease Monitor 4. CKD 2 Monitor 5. Diastolic dysfunction-stable 6. Hypertension-BP still slightly elevated Patient has been on nifedipine twice daily and clonidine, will switch nifedipine to to Norvasc 5 mg right now, up titrate as needed and try to get patient off of clonidine 7. History of homeless Patient states that he is no longer homeless and is attending college Prophylaxis: SCDs Problems: Subjective 24 Hr Interval Summary Constitutional: no complaints Exam/Review of Systems Vital Signs Vitals Vital Signs Date Time Temp Pulse Resp B/P Pulse Ox O2 Delivery O2 Flow Rate FiO2 06/26/17 08:00 98.8 70 20 155/94 98 06/23/17 14:30 21 06/23/17 07:38 Room Air Intake and Output 06/25/17 06/25/17 06/26/17 15:00 23:00 07:00 Intake Total 110 ml 640 ml 800 ml Output Total 700 ml 900 ml Balance 110 ml -60 ml -100 ml Exam Constitutional: alert, oriented Respiratory: clear to auscultation Cardiovascular: regular rate and rhythm Gastrointestinal: soft, No distended Musculoskeletal: nl extremities to inspection Results Result Diagram: 06/24/17 0641 06/25/17 0921 Medications Medications Current Medications Lorazepam (Ativan) 0.5 mg Q8H PRN PO ANXIETY; Start 06/23/17 at 07:30 Ondansetron HCl (Zofran Inj) 4 mg Q6H PRN IV NAUSEA AND/OR VOMITING; Start at 07:30 Acetaminophen (Tylenol Tab) 650 mg Q6H PRN PO PAIN LEVEL 1-3 OR FEVER; Start at 07:30 Morphine Sulfate (morphine) 2 mg Q4H PRN IV PAIN LEVEL 7-10; Start 06/23/17 at 07:30 Aspirin (Aspirin) 81 mg DAILY PO Last administered on 06/26/17 08:46; Admin Dose 81 MG; Start 06/23/17 at 09:00 Hydralazine HCl 10 mg 10 mg Q4H PRN IV SBP > 160; Start 06/23/17 at 07:30 Levofloxacin/ Dextrose (Levaquin 500mg/ D5W 100 ml (Pmx)) 100 ml @ 100 mls/hr Q24H IVPB Last administered on 06/26/17 03:32; Admin Dose 100 MLS/HR; Start at 04:00 Pantoprazole (Protonix Tab) 40 mg BID@06,18 PO Last administered on 06/26/17 05:42; Admin Dose 40 MG; Start 06/23/17 at 18:00 Clonidine (Catapres) 0.1 mg Q6H PO Last administered on 06/26/17 05:43; Admin Dose 0.1 MG; Start 06/23/17 at 12:30 Nifedipine (Procardia Xl) 30 mg BID PO Last administered on 06/26/17 08:46; Admin Dose 30 MG; Start 06/23/17 at 13:00 Doxazosin Mesylate (Cardura) 2 mg HS PO Last administered on 06/25/17 20:38; Admin Dose 2 MG; Start 06/24/17 at 21:00 NIKKY VALERIO Jun 26, 2017 11:44
[2017-06-26] MEDS: LOSARTAN 50 MG TAB PO SCH (12:48)
[2017-06-26 14:28] VITALS: BP 142/70; RESP 20
--- NOTE | 2017-06-26 14:37 | CONS ---
Date/Time of Note Date/Time of Note DATE: 06/26/17 TIME: 14:30 Assessment/Plan Assessment/Plan Chief Complaint/Hosp Course S: * awake, comfortable, afebrile. * SCREENING TESTS NEGATIVE: (-)HIV/HBV/HCV * QTF Gold serology pending EXAM GEN: 57 yo M HEENT: Unremarkable NECK: supple CVS: RRR CHEST: Equal chest rise bilaterally, without dyspnea on observation ABD: Soft EXT: No c/c/e NEURO: Grossly intact, moves all extremities SKIN: No diaphoresis, no obvious rash Assessment: S/P hemoptysis, secodary to acute bronchitis as per Pulm note. 2. Rt LL CAP Plan: Hemoptysis resolved. Anticipate D/C on PO Levaquin when cleared primary team. No evidence of TB as Pulm Note. Problems: Consultation Date/Type/Reason Admit Date/Time Jun 23, 2017 at 04:59 Initial Consult Date 06/23/17 Type of Consultation: ID Exam/Review of Systems Vital Signs Vitals Vital Signs Date Time Temp Pulse Resp B/P Pulse Ox O2 Delivery O2 Flow Rate FiO2 06/26/17 14:28 98.1 74 20 142/70 98 06/23/17 14:30 21 06/23/17 07:38 Room Air Intake and Output 06/25/17 06/25/17 06/26/17 15:00 23:00 07:00 Intake Total 110 ml 640 ml 800 ml Output Total 700 ml 900 ml Balance 110 ml -60 ml -100 ml Results Result Diagram: 06/24/17 0641 06/25/17 0921 Medications Medications Current Medications Lorazepam (Ativan) 0.5 mg Q8H PRN PO ANXIETY; Start 06/23/17 at 07:30 Ondansetron HCl (Zofran Inj) 4 mg Q6H PRN IV NAUSEA AND/OR VOMITING; Start at 07:30 Acetaminophen (Tylenol Tab) 650 mg Q6H PRN PO PAIN LEVEL 1-3 OR FEVER; Start at 07:30 Morphine Sulfate (morphine) 2 mg Q4H PRN IV PAIN LEVEL 7-10; Start 06/23/17 at 07:30 Aspirin (Aspirin) 81 mg DAILY PO Last administered on 06/26/17t 08:46; Admin Dose 81 MG; Start 06/23/17 at 09:00 Hydralazine HCl 10 mg 10 mg Q4H PRN IV SBP > 160; Start 06/23/17 at 07:30 Levofloxacin/ Dextrose (Levaquin 500mg/ D5W 100 ml (Pmx)) 100 ml @ 100 mls/hr Q24H IVPB Last administered on 06/26/17 03:32; Admin Dose 100 MLS/HR; Start at 04:00 Pantoprazole (Protonix Tab) 40 mg BID@06,18 PO Last administered on 06/26/17 05:42; Admin Dose 40 MG; Start 06/23/17 at 18:00 Clonidine (Catapres) 0.1 mg Q6H PO Last administered on 06/26/17 12:48; Admin Dose 0.1 MG; Start 06/23/17 at 12:30 Doxazosin Mesylate (Cardura) 2 mg HS PO Last administered on 06/25/17 20:38; Admin Dose 2 MG; Start 06/24/17 at 21:00 Amlodipine Besylate (Norvasc) 10 mg DAILY PO ; Start 06/27/17 at 09:00 Losartan Potassium (Cozaar) 100 mg DAILY PO Last administered on 06/26/17 12: 48; Admin Dose 100 MG; Start 06/26/17 at 12:00 ANASTASIYA LOVE Jun 26, 2017 14:37
[2017-06-26] MEDS: DOXAZOSIN 2 MG TAB PO SCH (20:34)
[2017-06-26 20:46] VITALS: BP 147/78; RESP 18
[2017-06-27 00:06] VITALS: BP 166/87; PULSE 87
[2017-06-27] MEDS: hydrALAzine 20 MG INJ IV PRN ×2 (02:21→15:11)
[2017-06-27 02:48] VITALS: BP 167/96; RESP 16
[2017-06-27] MEDS: PANTOPRAZOLE (EC) 40 MG TAB PO SCH (05:42)
[2017-06-27 05:52] VITALS: BP 169/80; PULSE 73
[2017-06-27] MEDS ORDERED: LEVOFLOXACIN 500 MG TAB PO SCH (06:00)
[2017-06-27 07:16] LABS: CALCIUM 8.9 mg/dl (8.4-10.2); CREATININE 1.36 mg/dl (0.61-1.24); POTASSIUM 3.5 mmol/L (3.5-5.1)
[2017-06-27 08:01] VITALS: BP 159/98; RESP 21
[2017-06-27] MEDS ORDERED: AMLODIPINE 10 MG TAB PO SCH (09:00)
[2017-06-27] MEDS: LOSARTAN 50 MG TAB PO SCH (09:04)
[2017-06-27] MEDS: ASPIRIN 81 MG TAB PO SCH (09:04)
--- NOTE | 2017-06-27 11:44 | CONS ---
Date/Time of Note Date/Time of Note DATE: 06/27/17 TIME: 11:43 Consult Date/Type/Reason Admit Date/Time Jun 23, 2017 at 04:59 Initial Consult Date 06/23/17 Type of Consultation: Pulmonary Subjective Patient remains stable this morning. No further hemoptysis. Objective Vital Signs Date Time Temp Pulse Resp B/P Pulse Ox O2 Delivery O2 Flow Rate FiO2 06/27/17 08:01 97.3 68 21 159/98 99 06/23/17 14:30 21 06/23/17 07:38 Room Air Intake and Output 06/26/17 06/26/17 06/27/17 14:59 22:59 06:59 Intake Total 1540 ml 560 ml Output Total 1200 ml 700 ml Balance 340 ml -140 ml Exam GENERAL: Well-nourished well-developed gentleman comfortable at rest VITAL SIGNS: per chart NECK: Supple. No JVD or lymphadenopathy. CARDIAC EXAM: S1, S2. No added sounds or murmurs. CHEST: clear bilaterally, No added sounds, rales or wheezes ABDOMEN: Soft, nontender. No guarding or rebound. EXTREMITIES: No cyanosis, clubbing or edema. NEUROLOGIC: Generalized weakness. No focal deficits. Results/Medications Result Diagram: 06/24/17 0641 06/27/17 0550 Results 24 hrs Laboratory Tests Test 06/27/17 05:50 06/27/17 08:03 Sodium Level 137 Potassium Level 3.5 Chloride Level 107 Carbon Dioxide Level 23 Anion Gap 11 Blood Urea Nitrogen 26 H Creatinine 1.36 H Glucose Level 135 Calcium Level 8.9 Lab Scanned Report REFERENCE LAB Medications Current Medications Lorazepam (Ativan) 0.5 mg Q8H PRN PO ANXIETY; Start 06/23/17 at 07:30 Ondansetron HCl (Zofran Inj) 4 mg Q6H PRN IV NAUSEA AND/OR VOMITING; Start at 07:30 Acetaminophen (Tylenol Tab) 650 mg Q6H PRN PO PAIN LEVEL 1-3 OR FEVER; Start at 07:30 Morphine Sulfate (morphine) 2 mg Q4H PRN IV PAIN LEVEL 7-10; Start 06/23/17 at 07:30 Aspirin (Aspirin) 81 mg DAILY PO Last administered on 06/27/17t 09:04; Admin Dose 81 MG; Start 06/23/17 at 09:00 Hydralazine HCl (Apresoline) 10 mg Q4H PRN IV SBP > 160 Last administered on 02:21; Admin Dose 10 MG; Start 06/23/17 at 07:30 Pantoprazole (Protonix Tab) 40 mg BID@06,18 PO Last administered on 06/27/17 05:42; Admin Dose 40 MG; Start 06/23/17 at 18:00 Clonidine (Catapres) 0.1 mg Q6H PO Last administered on 06/27/17 05:51; Admin Dose 0.1 MG; Start 06/23/17 at 12:30 Doxazosin Mesylate (Cardura) 2 mg HS PO Last administered on 06/26/17 20:34; Admin Dose 2 MG; Start 06/24/17 at 21:00 Amlodipine Besylate (Norvasc) 10 mg DAILY PO Last administered on 06/27/17 09: 04; Admin Dose 10 MG; Start 06/27/17 at 09:00 Losartan Potassium (Cozaar) 100 mg DAILY PO Last administered on 06/27/17 09: 04; Admin Dose 100 MG; Start 06/26/17 at 12:00 Levofloxacin (Levaquin) 500 mg DAILY@06 PO Last administered on 06/27/17 05:43 ; Admin Dose 500 MG; Start 06/27/17 at 06:00 Assessment/Plan Chief Complaint/Hosp Course Assessment 1. Acute bronchitis with hemoptysis which is now resolved 2. Initial AFB negative Recommendations 1. Discharge home today 2. Repeat CT chest 2-3 months 3. Patient advised to return to emergency room if he has further hemoptysis at which point he will need a bronchoscopy. Problems: OSWALDO DOS SANTOS MD, [facility] Jun 27, 2017 11:44
[2017-06-27 14:00] VITALS: BP 172/93; RESP 18
[2017-06-27 15:24] VITALS: BP 158/98; PULSE 69
--- NOTE | 2017-06-27 17:07 | PN ---
DATE: 06/27/2017 SUBJECTIVE DATA: No acute changes. Patient is alert, feels good, looks comfortable. No fevers. ANTIMICROBIALS: He is on Levaquin. PHYSICAL EXAMINATION: GENERAL: Well-developed, middle-aged white man, who is in no distress. HEENT: Head atraumatic, normocephalic. Sclerae anicteric. Buccal mucosa pink. NECK: Supple. CHEST: Rise symmetrical. Breath sounds clear. HEART: S1, S2. ABDOMEN: Soft, bowel sounds present. ASSESSMENT: 1. Status post hemoptysis secondary to acute bronchitis. 2. Left lower lobe community-acquired pneumonia. PLAN: Patient remains stable. Okay discharge on oral Levaquin to complete 10 days of antibiotics, once medically cleared. Dictated By: Eliu Lepe NP /mattie/josh /Document#: [id number]
--- NOTE | 2017-06-27 17:12 | PDOCDIS ---
Discharge Instructions DIAGNOSIS Discharge Diagnosis Bronchitis CONDITION Patient Condition: Good HOME CARE INSTRUCTIONS: Diet Instructions: RegularSpecial Diet: low fat low choles FOLLOW UP/APPOINTMENTS Follow-up Plan Follow up with your primary care doctor Return to the hospital if you continue to have blood in your sputum, have difficulty breathing, or any other concerning symptoms PATY RALPH MD Jun 27, 2017 17:12
[2017-06-27] MEDS ORDERED: NIFEdipine (XL) 30 MG TAB PO SCH (17:30)
[2017-06-27] MEDS ORDERED: LEVOFLOXACIN 500MG/D5W (PMX) 100 ML IVPB SCH (17:30)
[2017-06-28] MEDS ORDERED: HYDROCHLOROTHIAZIDE 25 MG TAB PO SCH (09:00)
== END 2017-06-27 18:50 | disposition home or self-care (01) | DRG 191 ==
LOC: E/R 22:21 → TEL 06-23 04:59 → PP2 06-24 18:16
PROVIDERS: ADMIT Internal Medicine; ATTEND Internal Medicine
DX: J47.0 Bronchiectasis with acute lower respiratory infection (principal); N17.9 Acute kidney failure, unspecified; R04.2 Hemoptysis; I16.1 Hypertensive emergency; E87.6 Hypokalemia; I12.9 Hypertensive chronic kidney disease with stage 1 through stage 4 chronic kidney disease, or unspecified chronic kidney disease; N18.2 Chronic kidney disease, stage 2 (mild); D63.1 Anemia in chronic kidney disease; Z72.0 Tobacco use; I25.10 Atherosclerotic heart disease of native coronary artery without angina pectoris; Z59.0 Homelessness; R39.198 Other difficulties with micturition; D64.9 Anemia, unspecified; Z79.82 Long term (current) use of aspirin; G56.01 Carpal tunnel syndrome, right upper limb; D50.9 Iron deficiency anemia, unspecified
CPT/HCPCS: 36415; 71010; 71250; 76775; 78582; 80048; 80053; 80306; 80307; 81003; 82570; 82728; 83540; 83605; 83735; 84100; 84300; 84484; 85025; 85378; 85610; 85730; 86480; 86803; 86850; 86900; 86901; 87040; 87070; 87086; 87116; 87340; 93005; 96374; 96375; A9540; J0360; J0696; J1644; J1956; J2270; J2916; J3370; J3480; J7030